=== PATIENT | female | born 1955 | race Caucasian/White ===

== ENCOUNTER 2016-02-28 17:31 | Inpatient (IN) | payer OTHER ==
[~2016-02-28] VITALS: Ht 167.6 cm; Wt 40.4 kg
[~2016-02-28 17:31] MED LIST: ADVIL200 M2 PO; ALDACTONE25 MG PO; ALDACTONE50 M1 PO; AMITRIPTYLINE H25 M2; AMITRIPTYLINE H25 M2 PO; AMOX-CLAV 875-1 EACH PO; ANUSOL-HC30 GM TOP; CALTRATE 600 +1 EACH PO; FERROUS SULFAT325 M3 PO; FOLIC ACID1 M1 PO; FUROSEMIDE20 M1 PO; LACTULOSE20 GM/30 M PO; LIDODERM1 EACH EXT; MAGNESIUM OXID400 M1 PO; MIRALAX17 G1 PO; OMEPRAZOLE20 M2 PO; ONE DAILY MULT1 EAC2 PO; SENNA S TABLET1 EACH PO; SPIRONOLACTONE50 M1 PO; VITAMIN B-1100 MG PO; VITAMIN E400 UNI1 PO
--- NOTE | 2016-02-28 18:06 | ED AMS/SEIZURE/WEAK/DIZZY ---
History of Present Illness General Chief Complaint: Altered Mental Status Stated Complaint: LIVER FAILURE ALTERED MENTAL STATUS Source: family, old records Exam Limitations: no limitations Vital Signs & Intake/Output Vital Signs & Intake/Output Vital Signs Date Time Temp Pulse Resp B/P Pulse O2 O2 Flow FiO2 Ox Delivery Rate 02/28 0020 97.3 114 18 100/62 95 Nasal Cannula 02/27 2202 Nasal 2.0L Cannula 02/27 2123 98.4 114 20 110/50 99 Room Air 02/28 2052 98.3 117 20 119/82 99 Room Air 02/27 174 97.4 123 16 131/84 86 Room Air ED Intake and Output 02/28 0000 02/27 1200 Intake Total 200 Output Total 150 Balance 50 Intake, IV 200 Output, Urine 150 Patient 89 lb 15.99 oz Weight Allergies Coded Allergies: NO KNOWN ALLERGIES (02/04/16) Reconcile Medications Calcium Carbonate/Vitamin D3 (Caltrate 600 + D Tablet) 600 MG-800 TABLET 1 TAB PO BID SUPPLEMENT (Reported) Ferrous Sulfate 325 MG (65 MG IRON) TABLET 1 TAB PO DAILY anemia Folic Acid 1 MG TABLET 1 TAB PO DAILY SUPPLEMENT (Reported) Furosemide 20 MG TABLET 1 TAB PO DAILY Water pill Lactulose 20 GRAM/30 ML SOLUTION 20 GM PO BID cirrhosis Lidocaine (Lidoderm) 5 % ADH..PATCH 1 PAT EXT DAILY@2200 rib pain Magnesium Oxide 400 MG TABLET 400 MG PO BID low magnesium Omeprazole 20 MG CAPSULE.DR 1 CAP PO DAILY GI (Reported) Spironolactone (Aldactone) 25 MG TABLET 100 MG PO DAILY Cirrhosis Thiamine HCl (Vitamin B-1) 100 MG TABLET 1 TAB PO DAILY SUPPLEMENT (Reported) Vitamin E (Dl,Tocopheryl Acet) (Vitamin E) 400 UNIT CAPSULE 1 CAP PO BID SUPPLEMENT (Reported) Triage Note: PT HAS LIVER FAILURE WITH INCREASED CONFUSION. SPOUSE STATES SHE BECAME INCREASINGLY CONFUSED LAST EVENING. PT AMONIA LEVELS WERE HIGH WHEN SHE WAS TESTED FOR IT ON THE 3RD OF THIS MONTH. Triage Nurses Notes Reviewed? yes Onset: Abrupt Duration: day(s): (1) Timing: single episode today Injury Environment: home Severity: severe No Modifying Factors: none Associated Symptoms: CONFUSION, WEIGHT LOSS 20 LB IN 2 WEEKS HPI: This is a 60-year-old female who presents to the ER with from for chief complaint of altered mental status per her . This morning she told him she would prepare some breakfast but never did. He left for work for a few hours and found her very altered when he came home, not responding properly. History of cirrhosis on the livery transplant list. She is sober x 3.5 months and follows up with Dr. Raymundo. He reports she is compliant with all of her medications. No fever or chills. (GENOVEVA STRATTON MD) Past History Travel History Traveled to [place] past 21 day No Medical History Neurological: peripheral neuropathy EENT: reports changes in the vision of her right eye Cardiovascular: TACHYCARDIA Respiratory: NONE Gastrointestinal: alcoholic hepatitis, hemorrhoids cirrhosis Hepatic: cirrhosis, FATTY LIVER Renal: nephrolithiasis, she was found to have right-sided hydronephrosis for which she was seen by Dr. Sutherland in the hospital although she tells me she was unable to be seen because of frequent hospital stays since her discharge in November. 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/Reproductive: NONE Other Medical Hx: head trauma resulting in parieto-occipital scalp hematoma left leg lymphedema She had a pneumothorax after a fall many years ago History of MRSA: No History of VRE: No History of CDIFF: No Influenza Vaccine: 10/18/14 Surgical History Surgical History: hysterectomy, basal cell carcinoma left oophrectomy cervical cancer in the early Psychosocial History Who do you live with Spouse Services at Home Physical Therapy What is your primary language Cook Islander Tobacco Use: Never used ETOH Use: denies use Illicit Drug Use: denies illicit drug use Family History Family History, If Any: FATHER, , Age 40-50; Cause: Colon cancer. FH: colon cancer SISTER, ; Cause: Pancreatic cancer. FH: pancreatic cancer MOTHER FH: Alzheimers disease Relation not specified for: *No pertinent family history colon cancer (GENOVEVA STRATTON MD) Medical History Any Pertinent Medical History? see below for history Family History Hx Contributory? No (PARRISH ADAMS,LYDIA Yi) Review of Systems Review of Systems Constitutional: Reports: malaise, weakness, unexplained weight loss. Denies: chills, fever. EENTM: Reports: no symptoms. Respiratory: Denies: cough. Cardiovascular: Denies: chest pain. GI: Denies: abdominal pain. Genitourinary: Reports: no symptoms. Musculoskeletal: Reports: no symptoms. Skin: Reports: no symptoms. Neurological/Psychological: Reports: ataxia, confusion. Hematologic/Endocrine: Denies: bruising, bleeding. Immunologic/Allergic: Reports: no symptoms. All Other Systems: Reviewed and Negative (GENOVEVA STRATTON MD) Review of Systems Constitutional: Reports: see HPI. (PARRISH ADAMS,LYDIA Yi) Physical Exam Physical Exam General Appearance: awake, cachetic, severe distress, thin Head: atraumatic Eyes: Bilateral: pale conjunctivae, other (icteric sclera). Ears, Nose, Throat: DRY MUCUS MEMBRANES Neck: normal inspection, supple, full range of motion Respiratory: normal breath sounds, chest non-tender, no respiratory distress Cardiovascular: regular rate/rhythm Peripheral Pulses: 2+ radial (R), 2+ radial (L) Gastrointestinal: FIRM, DISTENDED Extremities: FULL RANGE OF MOTION Neurologic/Psych: LETHARGIC, AROUSABLE Core Measures ACS in differential dx? No CVA/TIA Diagnosis: No Severe Sepsis Present: No Septic Shock Present: No (GENOVEVA STRATTON MD) ED Sepsis Exam Date of Focused Sepsis Exam: 02/28/16 Time of Focused Sepsis Exam: 1800 Sepsis Cardiac Exam: Regular Rate/Rhythm Sepsis Resp Exam: CTA Sepsis Cap Refill Exam: >2 sec Sepsis Peripheral Pulse Exam: Weak Sepsis Peripheral Pulse Location: Radial Sepsis Skin Color Exam: Cyanotic, Pale Skin Temp/Moisture Exam: Warm/Dry (GENOVEVA STRATTON MD) Progress Plan of Care: Orders Procedure Date/time Status Nothing by Mouth 02/28 B Active MAGNESIUM 02/28 0600 Active CBC WITHOUT DIFFERENTIAL 02/28 06 Active BASIC ELECTROLYTES PLUS BUN&CR 02/28 06 Active Hemoccult 02/28 UNK Active Vital Signs 02/27 2201 Active Teach/Educate 02/27 2201 Active Nutritional Intake, Monitor 02/27 2201 Active Isolation 02/27 2201 Active Intake & Output 02/27 2201 Active Patient Care Conference 02/27 2201 Active Activity/Ambulation 02/27 2201 Active Saline Lock 02/28 2104 Active Pathway - chart 02/28 2104 Active House Staff 02/28 2104 Active Code Status 02/28 2104 Active CULTURE,BODY FLUID 02/27 2045 Active BODY FLUID CELL COUNT 02/27 2045 Complete Lab Add-on Test 02/27 2021 Active Saline Lock 02/27 2019 Active Misc Message 02/27 2019 Active ED Holding Orders 02/27 2019 Active Vital Signs 02/27 2019 Active Activity/Ambulation 02/27 2019 Active Code Status 02/27 2019 Complete Patient Data 02/27 2002 Active Admit to inpatient 02/27 195 Active PHOSPHORUS 02/27 1837 Complete MAGNESIUM 02/27 1837 Complete DIRECT BILIRUBIN 02/27 1837 Complete AMMONIA LEVEL 02/27 1837 Complete ARTERIAL BLOOD GAS (GEN) 02/27 1804 Complete Gómez, Insertion/Removal/Asses 02/27 1804 Active CULTURE,URINE 02/27 1804 Active BLOOD CULTURE 02/27 1804 Active URINE DRUGS OF ABUSE 02/27 1804 Complete URINALYSIS 02/27 1804 Complete TROPONIN LEVEL 02/27 1804 Complete PARTIAL THROMBOPLASTIN TIME 02/27 1804 Complete PROTHROMBIN TIME 02/27 1804 Complete LIPASE 02/27 1804 Complete ETHANOL 02/27 1804 Complete COMPREHENSIVE METABOLIC PANEL 02/27 1804 Complete CBC WITHOUT DIFFERENTIAL 02/27 1804 Complete TYPE & SCREEN (NOT X-MATCH) 02/27 1804 Complete EKG 02/27 1752 Active SWALLOW EVALUATION 02/27 UNK Active VTE Mechanical Prophylaxis 02/27 UNK Active Vital Signs 02/27 UNK Complete Restraint- Medical 02/27 UNK Complete Restraint- Medical 02/27 UNK Active Precautions 02/27 UNK Active Intake & Output 02/27 UNK Active Current Medications Sig/Micaela Start time Last Medication Dose Stop Time Status Admin Ceftriaxone Sodium 1,000 MG 2200 02/28 2200 AC (Rocephin) Folic Acid 1 MG DAILY 02/28 1000 AC (Folic Acid) Furosemide 20 MG DAILY 02/28 1000 AC (Lasix) Spironolactone 100 MG DAILY 02/28 1000 AC (Aldactone) Lactulose 1 BOT Q4 02/28 0200 AC (Lactulose Enema (Pom Only)) Thiamine HCl 100 MG ONCE ONE 02/28 0100 UNVr (Vitamin B-1) 02/28 0159 Sodium Chloride 100 ML (Normal Saline 0.9%) Potassium Chloride 10 MEQ Q1H 02/28 0045 AC 02/28 0146 Haloperidol 2.5 MG ONCE ONE 02/27 2300 CAN (Haldol) 02/27 2301 Magnesium Sulfate 1 GM ONCE ONE 02/27 2215 AC (Mag Sulfate in D5) 02/28 0214 Dextrose/Water 100 ML (D5W) Acetaminophen 325 MG Q8P PRN 02/27 2099 AC (Tylenol) Lactulose 20 GM ONCE ONE 02/28 1944 CAN (Enulose 20GM/30ML) 02/27 1945 Laboratory Tests 02/28/16 2100: Lymphocytes 47, % Normal PMNs 27, Misc Hematology Test , Fluid WBC 500 H, Fld Total RBCs Counted 353 H 02/28/16 1851: Urine Opiates Screen < 100.00, Methadone Screen < 40, Barbiturate Screen < 60, Ur Phencyclidine Scrn < 6.00, Amphetamines Screen < 100, U Benzodiazepines Scrn < 85, Urine Cocaine Screen < 50, Urine Cannabis Screen < 5.00, Urinalysis LIGHT H, Urine Color YEL, Urine Clarity HAZY H, Urine pH 6.5, Ur Specific [place] 1.025, Urine Protein 100 H, Urine Ketones TRACE H, Urine Nitrite POS H, Urine Bilirubin NEG@ICTO, Urine Urobilinogen 1.0, Ur Leukocyte Esterase LARGE H, Ur Microscopic SEDIMENT EXAMINED, Urine RBC 10-15 H, Urine WBC 25-50 H, Urine Hemoglobin LARGE H, Urine Glucose NEG 02/28/16 1837: Ammonia 78 H 02/28/16 183: Anion Gap 19 H, Estimated GFR > 60, BUN/Creatinine Ratio 15.0, Glucose 120 H, Calcium 9.7, Phosphorus 3.4, Magnesium 1.7, Total Bilirubin 6.9 H, Direct Bilirubin 3.1 H, AST 46 H, ALT 27, Alkaline Phosphatase 217 H, Troponin I < 0.01, Total Protein 8.1, Albumin 3.5, Globulin 4.6 H, Albumin/Globulin Ratio 0.8 L, Lipase 16 L, PT 22.7 H, INR 2.18 H, APTT 50 H, CBC w Diff NO MAN DIFF REQ, RBC 3.26 L, MCV 98.8, MCH 33.3 H, RDW 21.8 H, MPV 7.8, Gran % 63.7, Lymphocytes % 19.5 L, Monocytes % 14.1 H, Eosinophils % 2.1, Basophils % 0.6, Absolute Granulocytes 5.7, Absolute Lymphocytes 1.7, Absolute Monocytes 1.3 H, Absolute Eosinophils 0.2, Absolute Basophils 0.1, PUBS MCHC 33.7, Serum Alcohol < 10.0 02/28/161804: pH 7.54 H, pCO2 24 L, pO2 99, HCO3 20 L, ABG O2 Sat (Measured) 97.0, P-50 ( Temp Corrected) Y, Carboxyhemoglobin 0.3 L, O2 Concentration % 3L, Temperature 97.4, O2 Delivery Method N/C, Phlebotomy Draw Site RIGHT RADIAL Microbiology 02/27 2103 BLOOD: Blood Culture - RECD 02/27 2099 BODY FLUID: Body Fluid Culture - RECD 02/27 2099 BODY FLUID: Gram Stain - RECD 02/27 1850 URINE ROUT: Urine Culture - RECD 02/27 183 BLOOD: Blood Culture - RECD Hand-Off Endorsed To: PARRISH ADAMS,LYDIA Yi Endorsed Time: 1899 Pending: labs, Xray (CHAYITO ADAMS,GENOVEVA) Differential Diagnosis: alcohol intoxication, anemia, drug intoxication, encephalitis, electrolyte imbalance, HEPATIC ENCEPHALOPATHY Diagnostic Imaging: Viewed by Me: Radiology Read, Ultrasound. Discussed w/RAD: Radiology Read, Ultrasound. Radiology Impression: PATIENT: TOMEKA WILLIS PRESENT AGE : 60 PATIENT ACCOUNT NO: [id number] : 57 LOCATION: [facility] ORDERING PHYSICIAN: LYDIA SENIOR MD SERVICE DATE: 02/28/16 EXAM TYPE: US - US-DUPLEX VENOUS EXTREM UNI EXAMINATION: US LOWER EXTREMITY VENOUS, LEFT CLINICAL INFORMATION: Left lower extremity edema. COMPARISON: None. TECHNIQUE: Doppler spectral analysis and color flow Doppler imaging was performed of the left lower extremity. Compression and augmentation maneuvers were performed. FINDINGS: Lower extremity venous ultrasound demonstrates no evidence of DVT. The common femoral, femoral, popliteal and calf veins were well-identified and normal. They demonstrate normal compressibility and color fill-in. No popliteal cyst. IMPRESSION: No evidence for a lower extremity deep vein thrombosis. DICTATED BY: FRED VILLAVICENCIO MD DATE/TIME DICTATED:02/28/162040 CREDIT ADMINISTRATION OFFICER :DEJAH DATE/TIME TRANSCRIBED:02/28/162040 CONFIDENTIAL, DO NOT COPY WITHOUT APPROPRIATE AUTHORIZATION. <Electronically signed in Other Vendor System> SIGNED BY: FRED VILLAVICENCIO MD 02/28/162045 CXR Impression: SEE BELOW Initial ED EKG: S TACH AT 119 AND NSSTT CHANGES. Prior EKG: unchanged Rhythm Strip: sinus tachycardia Comments: PATIENT: TOMEKA WILLIS PRESENT AGE: 60 PATIENT ACCOUNT NO: [id number] : 57 LOCATION: [facility] ORDERING PHYSICIAN: GENOVEVA STRATTON MD SERVICE DATE: 02/28/16 EXAM TYPE: RAD - XRY-PORTABLE CHEST XRAY EXAMINATION: XR PORTABLE CHEST CLINICAL INFORMATION: 60-year-old female with acute mental status change. Cirrhosis. Ascites. Hypoxic. COMPARISON: Chest x-ray on 02/04/2016. TECHNIQUE: AP portable semierect view of the chest. FINDINGS: Lung volumes are low due to the high position of both hemidiaphragms secondary to the large volume ascites. Consequently, there is platelike atelectasis involving both lower lobes. As was the case in January, it is difficult to exclude bilateral pleural effusions. IMPRESSION: Ascites resulting in the high position of both hemidiaphragms and platelike atelectasis of the lower lobes. DICTATED BY: YODIT HAYWARD MD DATE/TIME DICTATED:02/28/161917 CREDIT ADMINISTRATION OFFICER:DEJAH DATE/TIME TRANSCRIBED:02/28/161917 CONFIDENTIAL, DO NOT COPY WITHOUT APPROPRIATE AUTHORIZATION. <Electronically signed in Other Vendor System> SIGNED BY: YODIT HAYWARD MD 1925 (LYDIA SENIOR MD) Departure Departure Clinical Impression Primary Impression: Encephalopathy, hepatic Secondary Impressions: Hypokalemia Referrals: GIANNI PERSAUD MD (PCP/Family) Departure Forms: Customer Survey General Discharge Information (GENOVEVA STRATTON MD) Departure Disposition: STILL A PATIENT Condition: Guarded Admission Note Spoke With: KENNY DOE MD Documentation of Exam: Documentation of any treatments & extenuating circumstances including Concerns Regarding Discharge (functional status, medication knowledge or non-compliance, living conditions, etc.) that warrant an admission rather than observation: [ Patient to be admitted for hepatic encephalopathy and possible SBP. Patient will have a diagnostic paracentesis. Patient will receive lactulose. Patient is on the transplant list and will needed GI consultation.] (LYDIA SENIOR MD) Procedures Additional Procedures Additional Procedures: DIAGNOSTIC PARACENTESIS Progress: Under ultrasound guidance the area was cleaned and prepped in the usual fashion. 1% lidocaine a total of 2 mL was used for anesthetizing of the skin. As Z track puncture was performed. 20 mL of thin yellow fluid was obtained. This will be sent to lab. Patient tolerated procedure well. (PARRISH ADAMS,LYDIA Yi) Critical Care Note Critical Care Note Critical Care Time: mins: (30 MIN) (PARRISH ADAMS,LYDIA Yi)
[2016-02-28 18:58] LABS: ABSOLUTE BASOPHIL COUNT 0.1 /CUMM (0.0-0.2); ABSOLUTE EOSINOPHIL COUNT 0.2 /CUMM (0.0-0.7); ABSOLUTE GRANULOCYTE CT 5.7 /CUMM (1.4-6.5); ABSOLUTE LYMPH COUNT 1.7 /CUMM (1.2-3.4); ABSOLUTE MONOCYTE COUNT 1.3 /CUMM (0.10-0.60); BASOPHIL % 0.6 % (0.0-2.0); EOSINOPHIL % 2.1 % (0-5); GRANULOCYTE % 63.7 % (42.2-75.2); HEMATOCRIT 32.2 % (37-47); MEAN CORPUSCULAR HGB 33.3 PG (27.0-31.0); MEAN CORPUSCULAR HGB CONC 33.7 G/DL (33.0-37.0); MEAN CORPUSCULAR VOLUME 98.8 FL (81.0-99.0); MEAN PLATELET VOLUME 7.8 FL (7.4-10.4); PLATELET COUNT 218 /CUMM (130-400); RBC DISTRIBUTION WIDTH 21.8 % (11.5-14.5); RED BLOOD CELL CT 3.26 /CUMM (4.20-5.40); WHITE BLOOD CELL COUNT 8.9 /CUMM (4.8-10.8)
--- NOTE | 2016-02-28 19:26 | RADIOLOGY REPORT ---
EXAMINATION: XR PORTABLE CHEST CLINICAL INFORMATION: 60-year-old female with acute mental status change. Cirrhosis. Ascites. Hypoxic. COMPARISON: Chest x-ray on 02/04/2016. TECHNIQUE: AP portable semierect view of the chest. FINDINGS: Lung volumes are low due to the high position of both hemidiaphragms secondary to the large volume ascites. Consequently, there is platelike atelectasis involving both lower lobes. As was the case in January, it is difficult to exclude bilateral pleural effusions. IMPRESSION: Ascites resulting in the high position of both hemidiaphragms and platelike atelectasis of the lower lobes.
--- NOTE | 2016-02-28 20:21 | History & Physical ---
CHANDANA BENSON MD 02/28/162020: General Information and HPI MD Statement: I have seen and personally examined TOMEKA WILLIS and documented this H&P. The patient is a 60 year old F who presented with a patient stated chief complaint of [increased confusion]. Source of Information: patient, family Exam Limitations: unable to give history, not alert/orientated, clinical condition History of Present Illness: 60-year-old female with PMH of cirrhosis diagnosed in Nov 2015, alcohol dependence, last use November 2015, anemia, tachycardia, chronic left lower extremity lymphedema, cervical cancer sp hysterectomy in 1990, urinary retention with chronic indwelling layton catheter, recurrent falls with right ribs fracture 4 weeks RELINER, presented with increased confusion. Her started noticing it last night, when she appeared confused when asked to sign a piece of paper and unable to use the TV remote. This morning, she still appeared confused and said she was going to make herself omelette, but she did not. When her got home from work, she was not responsive to his questions, and he decided to bring her to the ED. She had 20lbs weight loss since last admission because she has not had good appetite. She has abdominal discomfort. Her urine has been dark and blood tinged since it was inserted. Her abdomen is getting more distended due to ascites, but as per , it is still not as distended as previous admission. She had 1 episode of vomiting 4 days ago, unknown if there was blood, as she flushed the toilet before her saw it. She has chronic left leg swelling. On ROS, she has not had fever, chills, shortness of breath (much improved since last admission), chest pain (other than the right sided rib pain from the recent fall), nausea, vomiting, constipation, diarrhea, discomfort with layton. She was having some difficulty swallowing her pills this morning, as per , there was periods of "choking". Allergies/Medications Allergies: Coded Allergies: NO KNOWN ALLERGIES (02/04/16) Home Med list Calcium Carbonate/Vitamin D3 (Caltrate 600 + D Tablet) 600 MG-800 TABLET 1 TAB PO BID SUPPLEMENT (Reported) Ferrous Sulfate 325 MG (65 MG IRON) TABLET 1 TAB PO DAILY anemia Folic Acid 1 MG TABLET 1 TAB PO DAILY SUPPLEMENT (Reported) Furosemide 20 MG TABLET 1 TAB PO DAILY Water pill Lactulose 20 GRAM/30 ML SOLUTION 20 GM PO BID cirrhosis Lidocaine (Lidoderm) 5 % ADH..PATCH 1 PAT EXT DAILY@2200 rib pain Magnesium Oxide 400 MG TABLET 400 MG PO BID low magnesium Omeprazole 20 MG CAPSULE.DR 1 CAP PO DAILY GI (Reported) Spironolactone (Aldactone) 25 MG TABLET 100 MG PO DAILY Cirrhosis Thiamine HCl (Vitamin B-1) 100 MG TABLET 1 TAB PO DAILY SUPPLEMENT (Reported) Vitamin E (Dl,Tocopheryl Acet) (Vitamin E) 400 UNIT CAPSULE 1 CAP PO BID SUPPLEMENT (Reported) Past History Travel History Traveled to [place] past 21 day No Medical History Neurological: peripheral neuropathy EENT: reports changes in the vision of her right eye Cardiovascular: TACHYCARDIA Respiratory: NONE Gastrointestinal: alcoholic hepatitis, hemorrhoids cirrhosis Hepatic: cirrhosis, FATTY LIVER Renal: nephrolithiasis, right-sided hydronephrosis , chronic indwelling catheter 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, 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 FH: colon cancer SISTER, ; Cause: Pancreatic cancer. FH: pancreatic cancer MOTHER FH: Alzheimers disease Relation not specified for: colon cancer Psychosocial History Where do you live? Home Who Do You Live With? spouse Services at Home: Physical Therapy Primary Language: Venezuelan Smoking Status: Former Smoker ETOH Use: denies use Illicit Drug Use: denies illicit drug use Living Will? yes Functional Ability ADLs Independent: dressing, eating, toileting, bathing. Ambulation: independent IADLs Independent: shopping, housework, finances, food prep, telephone, transportation , medication admin. Review of Systems Review of Systems Constitutional: Reports: unexplained weight loss (20lbs since last admission). Denies: chills, fever. EENTM: Reports: icterus. Cardiovascular: Denies: chest pain. Respiratory: Reports: cough, short of breath. GI: Denies: abdominal pain, constipation, diarrhea, bloody stool, changes in stool. Genitourinary: Reports: hematuria. Denies: dysuria. Musculoskeletal: Reports: see HPI. Denies: back pain. Skin: Reports: rash. Exam & Diagnostic Data Last 24 Hrs of Vital Signs/I&O Vital Signs Date Time Temp Pulse Resp B/P Pulse O2 O2 Flow FiO2 Ox Delivery Rate 02/27 2123 98.4 114 20 110/50 99 Room Air 02/28 2052 98.3 117 20 119/82 99 Room Air 02/27 1741 97.4 123 16 131/84 86 Room Air Physical Exam General Appearance Alert, Mild Distress, not oriented to time, place, or person, lethargic, not able to follow commands Skin blanching pinpoint rash on her back , no decubitus ulcer , spider angioma on the chest HEENT PERRLA, dry mucous membranes , scleral icterus Neck +2 Carotid Pulse wo Bruit Lymphatic Axillary nl, Cervical nl Cardiovascular Regular Rate, Normal S1, Normal S2, No Murmurs, Gallops, Rubs, tachycardic Lungs decreased breath sounds Abdomen Soft, tender abdomen , abdominal distention due to ascites Neurological positive asterixis Extremities Normal Pulses, pitting edema left lower extremities up to the knee , normal cap refill Last 24 Hrs of Labs/Shaggy: Laboratory Tests 02/28/16 2100: Lymphocytes 47, % Normal PMNs 27, Misc Hematology Test , Fluid WBC 500 H, Fld Total RBCs Counted 353 H 02/28/16 1851: Urine Opiates Screen < 100.00, Methadone Screen < 40, Barbiturate Screen < 60, Ur Phencyclidine Scrn < 6.00, Amphetamines Screen < 100, U Benzodiazepines Scrn < 85, Urine Cocaine Screen < 50, Urine Cannabis Screen < 5.00, Urinalysis LIGHT H, Urine Color YEL, Urine Clarity HAZY H, Urine pH 6.5, Ur Specific Stanton 1.025, Urine Protein 100 H, Urine Ketones TRACE H, Urine Nitrite POS H, Urine Bilirubin NEG@ICTO, Urine Urobilinogen 1.0, Ur Leukocyte Esterase LARGE H, Ur Microscopic SEDIMENT EXAMINED, Urine RBC 10-15 H, Urine WBC 25-50 H, Urine Hemoglobin LARGE H, Urine Glucose NEG 02/28/16 1837: Ammonia 78 H 02/28/161836: Anion Gap 19 H, Estimated GFR > 60, BUN/Creatinine Ratio 15.0, Glucose 120 H, Calcium 9.7, Phosphorus 3.4, Magnesium 1.7, Total Bilirubin 6.9 H, Direct Bilirubin 3.1 H, AST 46 H, ALT 27, Alkaline Phosphatase 217 H, Troponin I < 0.01, Total Protein 8.1, Albumin 3.5, Globulin 4.6 H, Albumin/Globulin Ratio 0.8 L, Lipase 16 L, PT 22.7 H, INR 2.18 H, APTT 50 H, CBC w Diff NO MAN DIFF REQ, RBC 3.26 L, MCV 98.8, MCH 33.3 H, RDW 21.8 H, MPV 7.8, Gran % 63.7, Lymphocytes % 19.5 L, Monocytes % 14.1 H, Eosinophils % 2.1, Basophils % 0.6, Absolute Granulocytes 5.7, Absolute Lymphocytes 1.7, Absolute Monocytes 1.3 H, Absolute Eosinophils 0.2, Absolute Basophils 0.1, PUBS MCHC 33.7, Serum Alcohol < 10.0 02/28/16 1805: pH 7.54 H, pCO2 24 L, pO2 99, HCO3 20 L, ABG O2 Sat (Measured) 97.0, P-50 ( Temp Corrected) Y, Carboxyhemoglobin 0.3 L, O2 Concentration % 3L, Temperature 97.4, O2 Delivery Method N/C, Phlebotomy Draw Site RIGHT RADIAL Microbiology 02/27 2103 BLOOD: Blood Culture - RECD 02/27 2099 BODY FLUID: Body Fluid Culture - RECD 02/27 2100 BODY FLUID: Gram Stain - RECD 02/27 1851 URINE ROUT: Urine Culture - RECD 02/27 1837 BLOOD: Blood Culture - RECD Diagnostic Data EKG Results ST, rate 119, normal QTc CXR Results IMPRESSION: Ascites resulting in the high position of both hemidiaphragms and platelike atelectasis of the lower lobes. Other Results Left doppler : No evidence for a lower extremity deep vein thrombosis. Assessment/Plan Assessment: 60-year-old female with PMH of cirrhosis diagnosed in Nov 2015, alcohol dependence, last use November 2015, anemia, tachycardia, chronic left lower extremity lymphedema, cervical cancer sp hysterectomy in 1990, urinary retention with chronic indwelling layton catheter, recurrent falls with right ribs fracture 4 weeks RELINER, presented with increased confusion. She is admitted to for the following problems: # Confusion most likely secondary to hepatic encephalopathy (ammonia elevated at 78, positive asterixis, unknown compliance to lactulose at home), which could possibly be precipitated by SBP (diagnostic paracentesis done at bedside yielded clear yellow fluid with WBC 500, 27% neutrophils, tender abdomen although soft and no guarding) vs UTI (has chronic indwelling catheter due to urinary retention, with blood tinged urine, UA positive for nitrite, leukocyte esterase, 25-50wbc, hx of ecoli in urine and blood on previous admission) - Anion gap metabolic acidosis - Respiratory alkalosis most likely secondary to ascites - MELD score: 22. 19.6% 3 month mortality * Follow 2X BC, UC * Lactulose enema * Consider Rifaximin * Continue ceftriaxone * IVF D51/2 NS at 50ml/hr * GI consult in AM. Pt's would like to be at bedside when GI sees her. * F/U with [facility] * Stool guaiac: positive guaiac, dark green stool * Swallow evaluation when pt more alert and oriented * Continue sprinolactone 100 mg daily and lasix 20 daily * Consider repeat CXR to evaluate for possible aspiration # Hypokalemia - K: 3 * [id number] IV * Give kdur when pt passes bedside eval # Hypomagnesemia - Mg 1.7 * Continue mag ox 400 bid * 1 X 1g mag # Right rib pain * Continue lidocaine patch Restrain: [place] for unsafe ambulation , BL wrist restrains for attempts at pulling out IV lines and layton Diet: NPO pending swallow evaluation. Otherwise low sodium diet DVT ppx: alps DNR/DNI As Ranked By This Provider Problem List: 1. Encephalopathy, hepatic 2. Spontaneous bacterial peritonitis Core Measures/Miscellaneous Acute Coronary Syndrome ACS Diagnosis: No Cerebrovascular Accident CVA/TIA Diagnosis: No Congestive Heart Failure CHF Diagnosis: No Venous Thromboembolism VTE Risk Factors: Acute medical illness, Age > 40 VTE Prophylaxis Ordered Inpt: Mechanical (ALPS/TEDS) No Mech VTE prophylaxis d/t: No contraindications No VTE Pharm Prophylaxis d/t: No contraindications VTE Diagnosis: No VTE Type: NONE VTE Confirmed by (Test): UNILATERAL VENOUS DOPPLER Severe Sepsis Severe Sepsis Present: No BC x2: Yes Lactic Acid x2: Yes IV ABX Broad Spectrum: Yes Septic Shock Septic Shock Present: No Miscellaneous Documentation Attending Case Discussed With: KENNY DOE MD Primary Care Physician: CORI ADAMS,GIANNI Patient sees these Specialists Dr Zackary HARTLEY Level of Patient Care: General Medicine MARCELLO MERCEDES 02/29/16 0024: Resident Review Statement Resident Statement: examined this patient, discussed with applications intern, agreed with applications intern, discussed with family, reviewed EMR data (avail), reviewed images, amended to note Other Findings: This is 60-year-old female with past medical history of diagnosed in Nov 2015 with alcohol induced cirrhosis, last use November 2015, anemia, chronic left lower extremity lymphedema, cervical cancer sp hysterectomy in 1990, urinary retention with chronic indwelling layton catheter due to obstructive uropathy, recurrent falls with right ribs fracture 4 weeks RELINER, presented with increased confusion, decreased appetite, 20 pound weight loss since recent discharge on January, abdominal pain with increased abdominal girth. Her urine has been dark and blood tinged since it was inserted. He deny any fever, chills, difficulty breathing. The history was taken from the patient , and she is disoriented, cannot follow command. Positive guaiac stool. MELD score: 22. 19.6% 3 month mortality Physical Examination, lab and imaging as above. Problem list: -Hepatic encephalopathy that could be due to medication noncompliance, underlying infection, bleeding. SBP rule out by diagnostic tap. -Hypokalemia, hypomagnesemia -Anion gap acidosis, respiratory alkalosis -Dark urine with abnormal urine analysis -Dehydration, cachectic Plan: -Admit patient to general medicine floor -[facility] every shift, I&Os. -Per rectum on lactulose every 4 hours -Continue IV ceftriaxone, IV vitamin B-1 -As needed haloperidol for agitation -Replete potassium and magnesium as needed -D5 half-normal saline at 50 per hour only one bag. -Blood culture, urine culture, body fluid culture -Continue home medication of by mouth Lasix, spironolactone, folic acid -Repeat CBC and basic panel electrolyte in the morning -Keep the patient nothing by mouth pending swallow evaluation -Gastroenterology consultation in a.m. -The patient may need upper endoscopy for varices evaluation. -Urology consultation in a.m. -Pain pathway low dose of Tylenol maximum of 2 g per day. -DVT prophylaxis: Alps -DNI DNR per her KENNY DOE 02/29/16 0333: Attending MD Review Statement Attending Statement Attending MD Statement: examined this patient, discuss w/resident/PA/LANDSCAPING CREW LEADER, agreed w/resident/PA/LANDSCAPING CREW LEADER, reviewed EMR data (avail), reviewed images, amended to note Attending Assessment/Plan: CC : Altered mental status PMHx: Alcoholic cirrhosis, decompensated with ascites. Recent obstructive uropathy with left hydronephrosis secondary to obstructing stone at [facility]. Chronic indwelling Layton secondary to urinary retention, HLD, chronic left lower extremity edema, history of cervical cancer, chronic tachycardia. Patient was recently admitted for sepsis of urological origin with obstructing left-sided stone status post stent placement, was discharged on February 14. states that patient has been more confused since yesterday, progressively worsened today and almost nonresponsive this evening when he brought her in the hospital. Patient does not provide any details as she is encephalopathy, but denies any fever, chills, chest pain, difficulty swallowing, LOC, urinary complaints. According to patient had been compliant with her medications. Patient had recent fall after which chest pain secondary to rib fractures, she has poor appetite and lost 20 pounds of weight ? Duration unknown patient quit drinking in November 2015. Vitals: Afebrile, pulse 114, RR, BP, O2 saturation within acceptable range. On examination: Patient has constant stare, does not follow instructions, spontaneously moves all extremities. PERRLA, mucosa dry, neck supple, no lymphadenopathy, left lower extremity is bigger and pitting edema as compared to right lower extremity, no evidence of spider angiomata, diffuse rash on the back and chest, RS: Clear to auscultate bilaterally. CVS: S1-S2, tachycardia. Abdomen : Distended, fluid thrill present, bowel sounds present, mild tenderness, no right upper quadrant tenderness. Labs: Hemoglobin 10.9, potassium 3.0, anion gap 19, bilirubin 6.9 which is increased from 5.1 from previous hospitalization, INR 2.1, AST 46, ALT 27, alkaline phosphatase 217, ammonia 78, albumin 3.5, troponin less than 0.01, lipase 16, UA positive for ketones as well as nitrates and leukocyte esterase, U tox negative. Chest x-ray: Ascites resulting in the high position of both hemidiaphragms and platelike atelectasis of the lower lobes. Left lower extremity DVT Doppler: No evidence of thrombus. A&P #1 hepatic encephalopathy: Patient is confused, with elevated ammonia. Unclear if patient can't swallow properly at this point given her mental status, also mentions that patient was having difficulty swallowing at home. Patient will need formal swallow evaluation in morning meanwhile continue lactulose retention enema Q every 6 hours, may change to by mouth once patient swallow evaluation is done. Continue neuro checks. Patient has decompensated cirrhosis with ascites and progression of disease may have precipitated hepatic encephalopathy but rule out other causes including systemic infection, GI bleed. #2 acetic fluid was tapped in ER, WBC count 500, PMN:135 ; Even though abdomen as tender to palpate, no evidence of SBP on test. #3 UTI with indwelling Layton catheter: No significant leukocytosis or fever but given worsened encephalopathy, get blood culture, urine culture, continue IV ceftriaxone. #4 decompensated cirrhosis: Current MELD score is 22. Currently complicated with encephalopathy, continue lactulose #5 DVT prophylaxis with heparin, avoid opiates for pain control given encephalopathy #6 no e/o pressure ulcer or skin breakdown on back, which was present in previous hospitalization. She had very dark colored stool, but no blood, Suggested to check guaiac.
--- NOTE | 2016-02-28 20:46 | ULTRASOUND REPORT ---
EXAMINATION: US LOWER EXTREMITY VENOUS, LEFT CLINICAL INFORMATION: Left lower extremity edema. COMPARISON: None. TECHNIQUE: Doppler spectral analysis and color flow Doppler imaging was performed of the left lower extremity. Compression and augmentation maneuvers were performed. FINDINGS: Lower extremity venous ultrasound demonstrates no evidence of DVT. The common femoral, femoral, popliteal and calf veins were well-identified and normal. They demonstrate normal compressibility and color fill-in. No popliteal cyst. IMPRESSION: No evidence for a lower extremity deep vein thrombosis.
[2016-02-28 21:32] LABS: PT 22.7 SEC (9.4-12.5); PTT 50 SEC (25-37)
[2016-02-29 00:20] VITALS: BP 100/62
--- NOTE | 2016-02-29 03:35 | Admission Certification ---
Admission Certification Certification Statement - As attending physician, I certify that at the time of - admission, based on clinical presentation, severity of - symptoms, need for further diagnostic testing and - therapeutic interventions, and risk of adverse outcomes - without in-hospital treatment, in my clinical assessment, - this patient requires an acute hospital stay for a minimum - of two nights or longer. I have also considered psychsocial - factors such as support system, advanced age, financial - issues, cognitive issues, and failed out-patient treatments, - past re-admission history, safety of patient, and lack of - compliance as applicable. Specific rationale supporting this admission is: Hepatic encephalopathy
--- NOTE | 2016-02-29 08:29 | Cons- Gastroenterology ---
General Information and HPI Consulting Request Date of Consult: 02/29/16 Requested By: KENNY DOE MD Reason for Consult: Hepatic encephalopathy, alcoholic cirrhosis, ascites. Source of Information: patient, family, old records Exam Limitations: confusion History of Present Illness: Ms. Mcintosh is a 60 year old female with etoh cirrhosis with numerous hospitalizations over the past several months and who was recently discharged for a hospitalization for urosepsis/SBP who represented to last night with reports of worsening confusion. She was noted by her to be confused last night and acting inppropriately. There have been no reports of abdominal pain, or fevers. She has had one episode of bilious vomiting a few days ago which has not persisted. She has had persistent abdominal distention and discomfort, but according to her the abdominal distention was worse on her last hospitalization. She has been having normal bowel movements without blood or melena. She has been on diuretics since being discharged and has also been on lactulose, but it isn't clear how complaint she has been with this. In the ER she was hemodynamically stable and afebrile she had a UA that was positive for a UTI and a diagnostic paracentesis was negative for SBP. She was admitted, started on IV ceftriaxone and lactuose, but continues to be confused. Of note, she was scheduled to see me as in the office as an outpatient on the day she was admitted. Allergies/Medications Allergies: Coded Allergies: NO KNOWN ALLERGIES (02/04/16) Home Med List: Calcium Carbonate/Vitamin D3 (Caltrate 600 + D Tablet) 600 MG-800 TABLET 1 TAB PO BID SUPPLEMENT (Reported) Ferrous Sulfate 325 MG (65 MG IRON) TABLET 1 TAB PO DAILY anemia Folic Acid 1 MG TABLET 1 TAB PO DAILY SUPPLEMENT (Reported) Furosemide 20 MG TABLET 1 TAB PO DAILY Water pill Lactulose 20 GRAM/30 ML SOLUTION 20 GM PO BID cirrhosis Lidocaine (Lidoderm) 5 % ADH..PATCH 1 PAT EXT DAILY@2200 rib pain Magnesium Oxide 400 MG TABLET 400 MG PO BID low magnesium Omeprazole 20 MG CAPSULE.DR 1 CAP PO DAILY GI (Reported) Spironolactone (Aldactone) 25 MG TABLET 100 MG PO DAILY Cirrhosis Thiamine HCl (Vitamin B-1) 100 MG TABLET 1 TAB PO DAILY SUPPLEMENT (Reported) Vitamin E (Dl,Tocopheryl Acet) (Vitamin E) 400 UNIT CAPSULE 1 CAP PO BID SUPPLEMENT (Reported) Current Medications: Current Medications Sig/Micaela Start time Last Medication Dose Route Stop Time Status Admin Acetaminophen 325 MG Q8P PRN 02/27 2100 AC PO Ceftriaxone Sodium 1,000 MG 0 02/28 2199 AC IV Ceftriaxone Sodium 1,000 MG ONCE ONE 02/27 2130 DC 02/28 IV 02/27 213 0102 Dextrose/Sodium 1,000 ML Q20H 02/27 2345 AC 02/28 Chloride IV 0014 Folic Acid 1 MG DAILY 02/28 1000 AC PO Furosemide 20 MG DAILY 02/28 1000 AC PO Haloperidol 2.5 MG ONCE ONE 02/27 2300 CAN IM 02/27 2301 Lactulose 1 BOT Q6 02/28 1200 AC FL Lactulose 1 BOT Q4 02/28 0200 DC 02/28 FL 0549 Lactulose 1 BOT ONCE ONE 02/27 2030 DC FL 02/27 2030 Lactulose 20 GM ONCE ONE 02/27 1945 CAN PO 02/27 1946 Lidocaine 1 PAT DAILY@0 02/28 220 AC EXT Lidocaine 0 .STK-MED ONE 02/28 2032 DC .ROUTE Lidocaine 20 ML ONCE ONE 02/27 2030 DC 02/27 ID 02/27 2030 204 Magnesium Sulfate 1 GM ONCE ONE 02/27 2215 DC 02/28 Dextrose/Water 100 ML IV 02/28 0214 0057 Potassium Chloride 10 MEQ Q1H 02/28 0045 DC 02/28 IV 02/28 0146 0321 Potassium Chloride 10 MEQ Q1H 02/27 2130 DC 02/28 IV 02/27 2231 0120 Sodium Chloride 1,000 ML .Q10H 02/27 2030 DC 02/27 IV 2222 Spironolactone 100 MG DAILY 02/28 1000 AC PO Thiamine HCl 100 MG ONCE ONE 02/28 0100 DC 02/28 Sodium Chloride 100 ML IV 02/28 0159 0200 Past History Travel History Traveled to [place] past 21 day No Medical History Neurological: peripheral neuropathy EENT: reports changes in the vision of her right eye Cardiovascular: TACHYCARDIA Respiratory: NONE Gastrointestinal: alcoholic hepatitis, hemorrhoids cirrhosis Hepatic: cirrhosis, FATTY LIVER Renal: nephrolithiasis, right-sided hydronephrosis chronic indwelling catheter 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, 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 FH: colon cancer SISTER, ; Cause: Pancreatic cancer. FH: pancreatic cancer MOTHER FH: Alzheimers disease Relation not specified for: colon cancer Psychosocial History Where Do You Live? Home Who Do You Live With? spouse Services at Home: Physical Therapy Primary Language: Romanian Smoking Status: Former Smoker ETOH Use: denies use Illicit Drug Use: denies illicit drug use Living Will? yes Functional Ability ADLs Independent: dressing, eating, toileting, bathing. Ambulation: independent IADLs Independent: shopping, housework, finances, food prep, telephone, transportation , medication admin. Review of Systems Review of Systems: A full 12 point review of systems was unobtainable secondary to the patient's confusion. Exam & Diagnostic Data Vital Signs and I&O Vital Signs Date Time Temp Pulse Resp B/P Pulse O2 O2 Flow FiO2 Ox Delivery Rate 02/28 0020 97.3 114 18 100/62 95 Nasal Cannula 02/27 2202 Nasal 2.0L Cannula 02/27 2123 98.4 114 20 110/50 99 Room Air 02/28 2052 98.3 117 20 119/82 99 Room Air 02/27 174 97.4 123 16 131/84 86 Room Air Intake & Output 02/28 1600 02/28 0400 02/27 1600 02/27 0400 02/26 1600 02/26 0400 Intake Total 800 200 Output Total 250 150 Balance 550 50 Intake, IV 800 200 Number 3 Bowel Movements Output, Urine 250 150 Patient 89 lb 15.99 oz Weight Physical Exam General Appearance: no apparent distress, comfortable, cachetic Head: atraumatic, + temporal wasting Eyes: Bilateral: other (+ scleral icterus). Ears, Nose, Throat: normal pharynx, normal ENT inspection Neck: normal inspection, supple, full range of motion Respiratory: normal breath sounds, chest non-tender, no respiratory distress Cardiovascular: regular rate/rhythm Gastrointestinal: normal bowel sounds, soft, distention, tenderness Rectal: deferred Back: normal inspection, normal range of motion Extremities: pedal edema, swelling, L >> R swelling Neurologic/Psych: disoriented x 3, Kernigs sign (+ asterixis), + asterixis Results Pertinent Lab Results: Laboratory Tests 02/28 02/27 02/27 0802 2100 1851 Chemistry Sodium Pending Potassium Pending Chloride Pending Carbon Dioxide Pending Anion Gap Pending BUN Pending Creatinine Pending BUN/Creatinine Ratio Pending Magnesium Pending Hematology CBC w Diff Pending WBC Pending RBC Pending Hgb Pending Hct Pending MCV Pending MCH Pending RDW Pending Plt Count Pending MPV Pending Lymphocytes (%) 47 % Normal PMNs (%) 27 PUBS MCHC Pending Misc Hematology Test (%) Other Body Source Fluid WBC (0 - 5 /CUMM) 500 H Fld Total RBCs Counted (0 /CUMM) 353 H Toxicology Urine Opiates Screen (>2000 NG/ML) < 100.00 Methadone Screen (>300 NG/ML) < 40 Barbiturate Screen (>200 NG/ML) < 60 Ur Phencyclidine Scrn (>25 NG/ML) < 6.00 Amphetamines Screen (>1000 NG/ML) < 100 U Benzodiazepines Scrn (>200 NG/ML) < 85 Urine Cocaine Screen (>300 NG/ML) < 50 Urine Cannabis Screen (>50 NG/ML) < 5.00 Urines Urinalysis LIGHT H Urine Color (YEL,AMB,STR) YEL Urine Clarity (CLEAR) HAZY H Urine pH (5.0 - 8.0) 6.5 Ur Specific [place] (1.001 - 1.035) 1.025 Urine Protein (NEG,<30 MG/DL) 100 H Urine Ketones (NEG) TRACE H Urine Nitrite (NEG) POS H Urine Bilirubin (NEG) NEG@ICTO Urine Urobilinogen (0.1 - 1.0 EU/dl) 1.0 Ur Leukocyte Esterase (NEG) LARGE H Ur Microscopic SEDIMENT EXAMINED Urine RBC (0 - 5 /HPF) 10-15 H Urine WBC (0 - 2 /HPF) 25-50 H Urine Hemoglobin (NEG) LARGE H Urine Glucose (N MG/DL) NEG 02/27 02/27 02/27 1837 1837 1805 Blood Gas pH (7.35 - 7.45 PH) 7.54 H pCO2 (35 - 45 TORR) 24 L pO2 (80 - 100 TORR) 99 HCO3 (21 - 28 MEQ/L) 20 L ABG O2 Sat (Measured) (>96.0 %) 97.0 P-50 (Temp Corrected) Y Carboxyhemoglobin (1.5 - 5.0 %) 0.3 L O2 Concentration % 3L Temperature (97.0 - 100.0 FARH) 97.4 O2 Delivery Method N/C Chemistry Sodium (137 - 145 mmol/L) 138 Potassium (3.5 - 5.1 mmol/L) 3.0 L Chloride (98 - 107 mmol/L) 96 L Carbon Dioxide (22 - 30 mmol/L) 23 Anion Gap (5 - 16) 19 H BUN (7 - 17 mg/dL) 9 Creatinine (0.5 - 1.0 mg/dL) 0.6 Estimated GFR (>60 ml/min) > 60 BUN/Creatinine Ratio (7 - 25 %) 15.0 Glucose (65 - 99 mg/dL) 120 H Calcium (8.4 - 10.2 mg/dL) 9.7 Phosphorus (2.5 - 4.5 mg/dL) 3.4 Magnesium (1.6 - 2.3 mg/dL) 1.7 Total Bilirubin (0.2 - 1.3 mg/dL) 6.9 H Direct Bilirubin (< 0.4 mg/dL) 3.1 H AST (14 - 36 U/L) 46 H ALT (9 - 52 U/L) 27 Alkaline Phosphatase (<127 U/L) 217 H Ammonia (9 - 30 umol/L) 78 H Troponin I (< 0.11 ng/ml) < 0.01 Total Protein (6.3 - 8.2 g/dL) 8.1 Albumin (3.5 - 5.0 g/dL) 3.5 Globulin (1.9 - 4.2 gm/dL) 4.6 H Albumin/Globulin Ratio (1.1 - 2.2 %) 0.8 L Lipase (23 - 300 U/L) 16 L Coagulation PT (9.4 - 12.5 SEC) 22.7 H INR (0.90 - 1.19) 2.18 H APTT (25 - 37 SEC) 50 H Hematology CBC w Diff NO MAN DIFF REQ WBC (4.8 - 10.8 /CUMM) 8.9 RBC (4.20 - 5.40 /CUMM) 3.26 L Hgb (12.0 - 16.0 G/DL) 10.9 L Hct (37 - 47 %) 32.2 L MCV (81.0 - 99.0 FL) 98.8 MCH (27.0 - 31.0 PG) 33.3 H RDW (11.5 - 14.5 %) 21.8 H Plt Count (130 - 400 /CUMM) 218 MPV (7.4 - 10.4 FL) 7.8 Gran % (42.2 - 75.2 %) 63.7 Lymphocytes % (20.5 - 51.1 %) 19.5 L Monocytes % (1.7 - 9.3 %) 14.1 H Eosinophils % (0 - 5 %) 2.1 Basophils % (0.0 - 2.0 %) 0.6 Absolute Granulocytes (1.4 - 6.5 /CUMM) 5.7 Absolute Lymphocytes (1.2 - 3.4 /CUMM) 1.7 Absolute Monocytes (0.10 - 0.60 /CUMM) 1.3 H Absolute Eosinophils (0.0 - 0.7 /CUMM) 0.2 Absolute Basophils (0.0 - 0.2 /CUMM) 0.1 PUBS MCHC (33.0 - 37.0 G/DL) 33.7 Miscellaneous Phlebotomy Draw Site RIGHT RADIAL Toxicology Serum Alcohol (<10 MG/DL) < 10.0 Assessment/Plan Assessment/Recommendations: Assessment: Ms. Mcintosh is a 60-year-old female with alcoholic cirrhosis with numerous hospitalizations over the past several months for various reasons including ascites, anemia, rectal bleeding, SBP and encephalopathy who presents now with changes in her mental status apparently secondary to hepatic encephalopathy and exacerbated by a urinary tract infection for which she has since been started on IV antibiotics. Her ascitic fluid did show 500 white cells, but only 27% of them were PMNs which does not meet the threshold for SBP. She is clearly encephalopathic and this has been exacerbated by an underlying UTI and electrolyte abnormalities, but primarily the UTI. She reportedly has been sober since November so if she continues to maintain sobriety she can be evaluated for a liver transplant considering her elevated meld score of approximately 22 on this admission, but will obviously hold off on that at this time considering the active infection and recent alcohol use. Recommendations: 1. Follow-up cultures and tailor antibiotics as indicated. 2. Continue IV ceftriaxone for now. 3. Continue lactulose and titrate to approximately 3 soft bowel movements a day. 4. Start Xifaxan 550 mg by mouth twice a day. 5. Advanced to a low sodium diet as tolerated and once her mental status improves. 6. Continue her current dose of diuretics and follow electrolytes and replete as needed. I will continue to follow this patient and make further recommendations based her clinical course and we'll tentatively plan to refer her for a liver transplant evaluation when she has been sober for 6 months. Problem List: 1. Alcohol abuse 2. Alcoholic liver disease 3. Anemia 4. Urinary tract infection 5. Encephalopathy, hepatic 6. Spontaneous bacterial peritonitis Copies To: CORI ADAMS,GIANNI Consult Acknowledgment - Thank you for your consult request.
[2016-02-29 08:35] VITALS: BP 106/60
[2016-02-29 09:08] LABS: ABSOLUTE BASOPHIL COUNT 0 /CUMM (0.0-0.2); ABSOLUTE EOSINOPHIL COUNT 0.2 /CUMM (0.0-0.7); ABSOLUTE GRANULOCYTE CT 5.4 /CUMM (1.4-6.5); ABSOLUTE LYMPH COUNT 1.6 /CUMM (1.2-3.4); ABSOLUTE MONOCYTE COUNT 1.2 /CUMM (0.10-0.60); BASOPHIL % 0.6 % (0.0-2.0); EOSINOPHIL % 2.1 % (0-5); GRANULOCYTE % 63.7 % (42.2-75.2); HEMATOCRIT 28.5 % (37-47); MEAN CORPUSCULAR HGB CONC 33.6 G/DL (33.0-37.0); MEAN CORPUSCULAR VOLUME 98.2 FL (81.0-99.0); MEAN PLATELET VOLUME 7.7 FL (7.4-10.4); PLATELET COUNT 181 /CUMM (130-400); RBC DISTRIBUTION WIDTH 21.1 % (11.5-14.5); WHITE BLOOD CELL COUNT 8.4 /CUMM (4.8-10.8)
--- NOTE | 2016-02-29 09:29 | PN- Housestaff ---
MARY KEE 02/29/16 0929: Subjective Follow-up For: Hepatic encephalopathy alcoholic cirrhosis. Complaints: pt unable to provide hx Subjective: Seen and examined patient, confused not answering questions appropriately. Review of Systems Constitutional: Reports: see HPI. Objective Last 24 Hrs of Vital Signs/I&O Vital Signs Date Time Temp Pulse Resp B/P Pulse O2 O2 Flow FiO2 Ox Delivery Rate 02/28 0835 97.4 110 18 106/60 98 Room Air 02/28 0020 97.3 114 18 100/62 95 Nasal Cannula 02/27 2202 Nasal 2.0L Cannula 02/27 2123 98.4 114 20 110/50 99 Room Air 02/28 2052 98.3 117 20 119/82 99 Room Air 02/27 174 97.4 123 16 131/84 86 Room Air Intake & Output 02/28 1600 02/28 0800 02/28 0000 Intake Total 800 200 Output Total 250 150 Balance 550 50 Intake, IV 800 200 Number 3 Bowel Movements Output, Urine 250 150 Patient 89 lb 15.99 oz Weight Physical Exam General Appearance: Mild Distress, cachetic Skin: dry sunkun HEENT: dry mucous membranes Cardiovascular: Regular Rate, Normal S1, Normal S2 Lungs: Normal Air Movement Extremities: +2 left ankle edema Current Medications: Current Medications Sig/Micaela Start time Last Medication Dose Route Stop Time Status Admin Acetaminophen 325 MG Q8P PRN 02/27 2100 AC PO Ceftriaxone Sodium 1,000 MG 02/28 AC IV Ceftriaxone Sodium 1,000 MG ONCE ONE 02/27 2129 DC 02/28 IV 02/27 2130 0102 Dextrose/Sodium 1,000 ML Q20H 02/27 2345 AC 02/28 Chloride IV 0014 Folic Acid 1 MG DAILY 02/28 1000 AC PO Furosemide 20 MG DAILY 02/28 1000 AC PO Haloperidol 2.5 MG ONCE ONE 02/27 2300 CAN IM 02/27 2301 Lactulose 1 BOT Q6 02/28 1200 AC DE Lactulose 1 BOT Q4 02/28 0200 DC 02/28 DE 0549 Lactulose 1 BOT ONCE ONE 02/27 2030 DC DE 02/27 2030 Lactulose 20 GM ONCE ONE 02/27 1945 CAN PO 02/27 1946 Lidocaine 1 PAT DAILY@0 02/28 2199 AC EXT Lidocaine 0 .STK-MED ONE 02/28 2032 DC .ROUTE Lidocaine 20 ML ONCE ONE 02/27 2029 DC 02/27 ID 02/27 2030 2047 Magnesium Sulfate 1 GM ONCE ONE 02/27 2215 DC 02/28 Dextrose/Water 100 ML IV 02/28 0214 0057 Potassium Chloride 10 MEQ Q1H 02/28 0045 DC 02/28 IV 02/28 0146 0321 Potassium Chloride 10 MEQ Q1H 02/27 2130 DC 02/28 IV 02/27 2231 0120 Sodium Chloride 1,000 ML .Q10H 02/27 2029 DC 02/27 IV 2222 Spironolactone 100 MG DAILY 02/28 1000 AC PO Thiamine HCl 100 MG ONCE ONE 02/28 0100 DC 02/28 Sodium Chloride 100 ML IV 02/28 0159 0200 Last 24 Hrs of Lab/Shaggy Results Last 24 Hrs of Labs/Mics: Laboratory Tests 02/29/16 0802: Anion Gap 14, Estimated GFR > 60, BUN/Creatinine Ratio 18.0, Magnesium 1.9, CBC w Diff NO MAN DIFF REQ, RBC 2.90 L, MCV 98.2, MCH 33.0 H, RDW 21.1 H, MPV 7.7 , Gran % 63.7, Lymphocytes % 19.4 L, Monocytes % 14.2 H, Eosinophils % 2.1, Basophils % 0.6, Absolute Granulocytes 5.4, Absolute Lymphocytes 1.6, Absolute Monocytes 1.2 H, Absolute Eosinophils 0.2, Absolute Basophils 0, PUBS MCHC 33.6 02/28/16 2100: Lymphocytes 47, % Normal PMNs 27, Misc Hematology Test , Fluid WBC 500 H, Fld Total RBCs Counted 353 H 02/28/16 1851: Urine Opiates Screen < 100.00, Methadone Screen < 40, Barbiturate Screen < 60, Ur Phencyclidine Scrn < 6.00, Amphetamines Screen < 100, U Benzodiazepines Scrn < 85, Urine Cocaine Screen < 50, Urine Cannabis Screen < 5.00, Urinalysis LIGHT H, Urine Color YEL, Urine Clarity HAZY H, Urine pH 6.5, Ur Specific [place] 1.025, Urine Protein 100 H, Urine Ketones TRACE H, Urine Nitrite POS H, Urine Bilirubin NEG@ICTO, Urine Urobilinogen 1.0, Ur Leukocyte Esterase LARGE H, Ur Microscopic SEDIMENT EXAMINED, Urine RBC 10-15 H, Urine WBC 25-50 H, Urine Hemoglobin LARGE H, Urine Glucose NEG 02/28/16 1837: Ammonia 78 H 02/28/161836: Anion Gap 19 H, Estimated GFR > 60, BUN/Creatinine Ratio 15.0, Glucose 120 H, Calcium 9.7, Phosphorus 3.4, Magnesium 1.7, Total Bilirubin 6.9 H, Direct Bilirubin 3.1 H, AST 46 H, ALT 27, Alkaline Phosphatase 217 H, Troponin I < 0.01, Total Protein 8.1, Albumin 3.5, Globulin 4.6 H, Albumin/Globulin Ratio 0.8 L, Lipase 16 L, PT 22.7 H, INR 2.18 H, APTT 50 H, CBC w Diff NO MAN DIFF REQ, RBC 3.26 L, MCV 98.8, MCH 33.3 H, RDW 21.8 H, MPV 7.8, Gran % 63.7, Lymphocytes % 19.5 L, Monocytes % 14.1 H, Eosinophils % 2.1, Basophils % 0.6, Absolute Granulocytes 5.7, Absolute Lymphocytes 1.7, Absolute Monocytes 1.3 H, Absolute Eosinophils 0.2, Absolute Basophils 0.1, PUBS MCHC 33.7, Serum Alcohol < 10.0 02/28/16 180: pH 7.54 H, pCO2 24 L, pO2 99, HCO3 20 L, ABG O2 Sat (Measured) 97.0, P-50 ( Temp Corrected) Y, Carboxyhemoglobin 0.3 L, O2 Concentration % 3L, Temperature 97.4, O2 Delivery Method N/C, Phlebotomy Draw Site RIGHT RADIAL Microbiology 02/27 2103 BLOOD: Blood Culture - RECD 02/27 2099 BODY FLUID: Body Fluid Culture - RES 02/27 2100 BODY FLUID: Gram Stain - RES 02/27 1851 URINE ROUT: Urine Culture - RECD 02/27 183 BLOOD: Blood Culture - RECD Assessment/Plan Assessment: 60-year-old woman woman with PMH of cirrhosis diagnosed in Nov 2015, alcohol dependence, , anemia, tachycardia, chronic left lower extremity lymphedema, cervical cancer sp hysterectomy in 1990, obstructive uropathy with left hydronephrosis secondary to stone s/p chronic indwelling layton catheter, recent admission for sepsis of urological origin status post stent placement recurrent falls with right ribs fracture 4 weeks [employer] and 20 pounds weight loss, current admission for worsening confusion. Found to be tachycardic, elevated bilirubin 6.9 transaminitis, elevated ALP ammonia level of 78 with UA positive for ketones and nitrates and leukocyte esterase. Plan Hepatic encephalopathy Continue lactulose, continue rifampicin, pass a swallow eval will place patient on mechanical soft diet with 2 g restriction GI on board appreciate recommendations Diagnostic paracentesis done showed to be transudative Obstructive uropathy/UTI Afebrile no elevated white count Urine culture showing gram-negative rods will continue IV ceftriaxone pending sensitivities Indwelling Lay[place] catheter DNR/DNI DVT prophylaxis mechanical Problem List: 1. Encephalopathy, hepatic 2. Orthostatic hypotension Pain Ratin Pain Location: not applicable Pain Goal: Pain 4 or less Pain Plan: Current regimen Tomorrow's Labs & Rationales: Hepatic encephalopathy :CBC, BEP, hepatic panel JOE LYNN MD 02/29/16 1433: Attending MD Review Statement Attending Statement Attending MD Statement: examined this patient, discuss w/resident/PA/APPROVER, agreed w/resident/PA/APPROVER, reviewed EMR data (avail) Attending Assessment/Plan: 60F PMH alcoholic cirrhosis, obstructive uropathy from nephrolithiasis s/p ureteral stenting with chronic indwelling Lay[place] admitted with hepatic encephalopathy, orthostatic hypotension, decompensated cirrhosis, and a urinary tract infection. On admission patient confused and minimally verbal, appears ill. Paracentesis done 02/27 showed no evidence of SBP at this time, cultures are pending. Mental status has improved since starting lactulose. 1. Decompensated cirrhosis 2. Hepatic encephalopathy 3. UTI 4. Obstructive uropathy 5. Orthostatic hypotension 6. Thrombocytopenia Plan - Continue on general medicine - Follow GI recommendations - Trend LFTs and INR - Continue Ceftriaxone - Follow up blood, urine, and ascites cultures - Discontinue IV fluids - Continue home medications - Consider albumin infusion if hypotensive or hepatorenal - Neuro checks - Continue Lactulose - Passed swallow evaluation, see speech therapy's notes - DVT Ppx with ALPS
[2016-02-29 16:33] VITALS: BP 110/64
[2016-02-29 23:40] VITALS: BP 128/78
--- NOTE | 2016-03-01 07:27 | PN- Housestaff ---
MARY KEE 03/01/16 0727: Subjective Follow-up For: Hepatic encephalopathy decompansated alcoholic cirrhosis. Subjective: Seen and examined patient. Much more awake and alert today and is answering questions. States that she is not eating as much as she has no appetite however states that she will work on that today. Denies being in pain. Denies shortness of breath chest pain abdominal pain. Review of Systems Constitutional: Denies: chills, diaphoresis, fever, malaise, weakness, unexplained weight loss. Cardiovascular: Denies: chest pain, edema, orthopena, palpitations, peripheral edema, syncope. Respiratory: Denies: cough, hemoptysis, orthopnea, short of breath, sputum production, stridor, wheezing. Objective Last 24 Hrs of Vital Signs/I&O Vital Signs Date Time Temp Pulse Resp B/P Pulse O2 O2 Flow FiO2 Ox Delivery Rate 03/01 0836 98.8 86 20 126/80 98 Room Air 02/28 2340 98.4 90 20 128/78 97 Room Air 02/28 1633 98.4 88 20 110/64 98 Room Air Intake & Output 03/01 1600 03/01 0800 03/01 0000 Intake Total 120 Output Total 350 300 Balance -230 -300 Intake, Oral 120 Number 1 1 Bowel Movements Output, Urine 350 300 Physical Exam General Appearance: Alert, Oriented X3, Cooperative Cardiovascular: Regular Rate, Normal S1, Normal S2 Lungs: Clear to Auscultation, Normal Air Movement Abdomen: Normal Bowel Sounds, Soft, No Tenderness Extremities: +2 left ankle edema Current Medications: Current Medications Sig/Micaela Start time Last Medication Dose Route Stop Time Status Admin Acetaminophen 325 MG Q8P PRN 02/27 2100 DC PO Ceftriaxone Sodium 1,000 MG 02/28 AC 02/28 IV 2058 Dextrose/Sodium 1,000 ML Q20H 02/27 2345 DC 02/28 Chloride IV 0014 Folic Acid 1 MG DAILY 02/28 1000 AC 02/28 PO 1231 Furosemide 20 MG DAILY 02/28 1000 AC 02/28 PO 1231 Lactulose 20 GM TID 02/28 1600 AC 02/28 PO 2057 Lactulose 1 BOT Q6 02/28 1200 DC ND Lidocaine 1 PAT DAILY@02/28 2200 AC 02/28 EXT 2057 Rifaximin 550 MG BID 01/12 1600 AC 02/28 PO 2057 Spironolactone 100 MG DAILY 02/28 1000 AC 02/28 PO 1230 Last 24 Hrs of Lab/Shaggy Results Last 24 Hrs of Labs/Mics: Laboratory Tests 03/01/16 0725: Anion Gap 15, Estimated GFR > 60, BUN/Creatinine Ratio 13.3, Total Bilirubin 5.1 H, Direct Bilirubin 2.8 H, AST 55 H, ALT 33, Alkaline Phosphatase 226 H, Total Protein 7.0, Albumin 2.9 L, PT 24.3 H, INR 2.33 H Assessment/Plan Assessment: 60-year-old woman woman with PMH of cirrhosis diagnosed in Nov 2015, alcohol dependence, , anemia, tachycardia, chronic left lower extremity lymphedema, cervical cancer sp hysterectomy in 1990, obstructive uropathy with left hydronephrosis secondary to stone s/p chronic indwelling layton catheter, recent admission for sepsis of urological origin status post stent placement recurrent falls with right ribs fracture 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 Found to be tachycardic, elevated bilirubin 6.9 transaminitis, elevated ALP ammonia level of 78 with UA positive for ketones and nitrates and leukocyte esterase. Diagnostic paracentesis done showed to be transudative. Improved mentation today Plan Hepatic encephalopathy Continue lactulose, continue rifampicin, regular diet with 2 gNa restriction GI on board appreciate recommendations Obstructive uropathy/UTI T bili 5.1 today, direct bili 2.8 mild decreased from yesterday, increase in ALP from 217->226 Urine culture showing gram-negative rods will continue IV ceftriaxone day 2 pending sensitivities Indwelling Layton catheter DNR/DNI DVT prophylaxis mechanical Problem List: 1. Urinary tract infection 2. Encephalopathy, hepatic 3. Alcoholic liver disease Pain Ratin Pain Location: na Pain Goal: Pain 4 or less Pain Plan: current regimen Tomorrow's Labs & Rationales: LFT JOE LYNN MD 03/01/16 1108: Attending MD Review Statement Attending Statement Attending MD Statement: examined this patient, discuss w/resident/PA/APPLICATION DEVELOPER MANAGER, agreed w/resident/PA/APPLICATION DEVELOPER MANAGER, reviewed EMR data (avail) Attending Assessment/Plan: 60F PMH alcoholic cirrhosis, obstructive uropathy from nephrolithiasis s/p ureteral stenting with chronic indwelling Layton admitted with hepatic encephalopathy, orthostatic hypotension, decompensated cirrhosis, and a urinary tract infection. On admission patient confused and minimally verbal, appears ill. Paracentesis done 02/27 showed no evidence of SBP at this time, cultures are pending. Mental status has improved since starting lactulose. Improved mental status today. Answering questions, but still confused. Jaundice and icterus worsening. Afebrile, no evidence of sepsis. Urine culture growing gram negative rods and Enterobacter. 1. Decompensated cirrhosis 2. Hepatic encephalopathy 3. UTI 4. Obstructive uropathy 5. Orthostatic hypotension 6. Thrombocytopenia Plan - Obtain ID consult - Continue on general medicine - Follow GI recommendations - Trend LFTs and INR - Continue Ceftriaxone - Follow up blood, urine, and ascites cultures - Continue home medications - Consider albumin infusion if hypotensive or hepatorenal - Neuro checks - Continue Lactulose and Rifaximin - Passed swallow evaluation, see speech therapy's notes - DVT Ppx with ALPS
[2016-03-01 08:36] VITALS: BP 126/80
[2016-03-01 08:46] LABS: PT 24.3 SEC (9.4-12.5)
[2016-03-01 16:18] VITALS: BP 121/68
--- NOTE | 2016-03-01 16:45 | Cons- Infect Disease ---
General Information and HPI Consulting Request Date of Consult: 03/01/16 Requested By: JOE LYNN MD Reason for Consult: Positive urine culture Source of Information: patient, old records Exam Limitations: unable to give history, confusion History of Present Illness: This is a 60-year-old woman with a history of alcohol-induced cirrhosis, chronic left lower extremity lymphedema, hospitalized 5 weeks prior to admission after a fall resulting in left rib fractures, hospitalized at that time, with a paracentesis negative for SBP, found to have bilateral hydronephrosis and urinary retention, discharged with a Gómez catheter, rehospitalized 3 weeks prior to admission with Escherichia coli sepsis, felt to be of urologic origin, with a repeat paracentesis consistent with SBP and with a CT scan revealing an 8 mm obstructing calculus at the left UPJ resulting in moderate left hydronephrosis, requiring a cystoscopy with placement of left ureteral stent, treated with Ceftriaxone and discharged on Augmentin to complete a two-week course of antibiotics with a Gómez catheter, after failing a voiding trial, and on Lasix, Aldactone and Lactulose, readmitted on February 27 with increased confusion since the night before admission and a history of anorexia, 20 pound weight loss and abdominal discomfort with one episode of vomiting 4 days prior to admission. On admission she was afebrile. Laboratory data revealed a white blood cell count of 9000, BUN/creatinine 9 and 0.6, potassium 3.0, bilirubin 6.9 , alk phosphatase 217, AST/ALT 46 and 27. INR 2.18. ABG 7.54/24/99 on 3 L. Urinalysis 10-15 RBC/25-50 WBCs. Chest x-ray revealed plate like atelectasis at the lower lobes. Doppler of the left leg was negative. She underwent a paracentesis, which revealed 500 white blood cells, with 27% polys. She was begun on Ceftriaxone and Lactulose, with Rifaximin added on February 28. She was also restarted on Lasix and Aldactone on February 28. She has remained afebrile since admission and white blood cell count has remained normal. Her mental status has apparently improved, though she is unable to provide any reliable history. She does deny any pain at this time. Allergies/Medications Allergies: Coded Allergies: NO KNOWN ALLERGIES (02/04/16) Home Med List: Calcium Carbonate/Vitamin D3 (Caltrate 600 + D Tablet) 600 MG-800 TABLET 1 TAB PO BID SUPPLEMENT (Reported) Ferrous Sulfate 325 MG (65 MG IRON) TABLET 1 TAB PO DAILY anemia Folic Acid 1 MG TABLET 1 TAB PO DAILY SUPPLEMENT (Reported) Furosemide 20 MG TABLET 1 TAB PO DAILY Water pill Lactulose 20 GRAM/30 ML SOLUTION 20 GM PO BID cirrhosis Lidocaine (Lidoderm) 5 % ADH..PATCH 1 PAT EXT DAILY@2200 rib pain Magnesium Oxide 400 MG TABLET 400 MG PO BID low magnesium Omeprazole 20 MG CAPSULE.DR 1 CAP PO DAILY GI (Reported) Spironolactone (Aldactone) 25 MG TABLET 100 MG PO DAILY Cirrhosis Thiamine HCl (Vitamin B-1) 100 MG TABLET 1 TAB PO DAILY SUPPLEMENT (Reported) Vitamin E (Dl,Tocopheryl Acet) (Vitamin E) 400 UNIT CAPSULE 1 CAP PO BID SUPPLEMENT (Reported) Past History Travel History Traveled to [place] past 21 day No Medical History Neurological: peripheral neuropathy Cardiovascular: TACHYCARDIA Respiratory: NONE Gastrointestinal: alcoholic hepatitis, hemorrhoids Hepatic: cirrhosis, FATTY LIVER Renal: nephrolithiasis, right-sided hydronephrosis chronic indwelling catheter 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, SKIN CANCER DIETITIAN RESEARCH/Reproductive: NONE Other Medical Hx: left leg lymphedema History of MRSA: No History of VRE: No History of CDIFF: No Isolation History: Standard Influenza Vaccine: 10/18/14 Surgical History Surgical History: hysterectomy, basal cell carcinoma left oophrectomy cervical cancer in the early 90s Family History Relations & Conditions If Any: FATHER, , Age 40-50; Cause: Colon cancer. FH: colon cancer SISTER, ; Cause: Pancreatic cancer. FH: pancreatic cancer MOTHER FH: Alzheimers disease Relation not specified for: colon cancer Psychosocial History Where Do You Live? Home Who Do You Live With? spouse Services at Home: Physical Therapy Primary Language: Latvian Smoking Status: Former Smoker ETOH Use: denies use Illicit Drug Use: denies illicit drug use Living Will? yes Functional Ability ADLs Independent: dressing, eating, toileting, bathing. Ambulation: independent IADLs Independent: shopping, housework, finances, food prep, telephone, transportation , medication admin. Review of Systems Review of Systems EENTM: Reports: visual changes (left eye). Cardiovascular: Reports: chest pain (left chest status post rib fxs). All Other Systems: Reviewed and Negative Exam & Diagnostic Data Last 24 Hrs of Vital Signs/I&O Vital Signs Date Time Temp Pulse Resp B/P Pulse O2 O2 Flow FiO2 Ox Delivery Rate 03/01 1618 97.9 118 22 121/68 97 Room Air 03/01 0836 98.8 86 20 126/80 98 Room Air 02/28 2340 98.4 90 20 128/78 97 Room Air Intake & Output 03/01 1600 03/01 0800 03/01 0000 Intake Total 120 Output Total 200 350 300 Balance -200 -230 -300 Intake, Oral 120 Number 1 1 Bowel Movements Output, Urine 200 350 300 Patient 89 lb 0.01 oz Weight Physical Exam Other Physical Findings: She is awake and alert, confused and disoriented, but in no acute distress. She is afebrile. Skin reveals a maculopapular rash on her back and trunk. HEENT exam scleral icterus. Neck is supple with no adenopathy. Lungs are clear. Heart regular rhythm with no murmur. Abdomen is mildly distended, nontender with positive bowel sounds. Back no CVA tenderness. Extremities left leg swelling compared to the right. Neuro is without focality. Last 24 Hours of Lab Results: Laboratory Tests 03/01 0725 Chemistry Sodium (137 - 145 mmol/L) 137 Potassium (3.5 - 5.1 mmol/L) 3.7 Chloride (98 - 107 mmol/L) 100 Carbon Dioxide (22 - 30 mmol/L) 22 Anion Gap (5 - 16) 15 BUN (7 - 17 mg/dL) 8 Creatinine (0.5 - 1.0 mg/dL) 0.6 Estimated GFR (>60 ml/min) > 60 BUN/Creatinine Ratio (7 - 25 %) 13.3 Total Bilirubin (0.2 - 1.3 mg/dL) 5.1 H Direct Bilirubin (< 0.4 mg/dL) 2.8 H AST (14 - 36 U/L) 55 H ALT (9 - 52 U/L) 33 Alkaline Phosphatase (<127 U/L) 226 H Total Protein (6.3 - 8.2 g/dL) 7.0 Albumin (3.5 - 5.0 g/dL) 2.9 L Coagulation PT (9.4 - 12.5 SEC) 24.3 H INR (0.90 - 1.19) 2.33 H Last 24 Hours of Shaggy Results: Blood cultures 2 February 27 negative Urine culture February 27 greater than 100,000 colonies of Enterobacter cloacae sensitive to Ciprofloxacin, Bactrim and Gentamicin and a possible second gram- negative aaron Diagnostic Data Recent Imaging Findings: Chest x-ray January 27, personally reviewed, reveals platelike atelectasis of both lower lobes Left leg Doppler February 27 negative Assessment/Plan Assessment/Plan Impression: This is a 60-year-old woman with alcohol-induced cirrhosis hospitalized 3 weeks prior to admission with Escherichia coli sepsis, felt to be of urologic origin, found to have a left hydronephrosis attributed to an obstructing stone at the ureteropelvic junction, requiring cystoscopy and placement of a left ureteral stent, with paracentesis revealing a markedly elevated white blood cell count consistent with spontaneous bacterial peritonitis, treated with a two-week course of antibiotics and discharged with a Gómez catheter, readmitted on February 27 with decreased responsiveness for 1 day, found to have an elevated ammonia level, with no fever or leukocytosis, and with a positive urine culture for gram-negative rods. The significance of this positive urine culture is unclear. It likely represents colonization secondary to the Gómez catheter and, in the absence of any fever or leukocytosis, though, given her cirrhosis, she may not be able to mount a white blood cell count, am not inclined to treat this. I suspect that her encephalopathy was related to her elevated ammonia level, suggesting poor compliance with her Lactulose. Of note she appears to have improved despite the fact that the Enterobacter is resistant to Ceftriaxone , supporting the clinical suspicion that this represents colonization. Her ascitic fluid cell count is not consistent with SBP and she has no other obvious focus of infection. Her rash is of unclear etiology and should be monitored. Of note the CT scan on her previous admission suggested a possible splenic infarct, which may require follow-up. Suggestion: 1. Would consider removing Gómez catheter for another voiding trial 2. Further management of her hepatic encephalopathy per GI 3. Discontinue Ceftriaxone and follow off antibiotics Consult Acknowledgment - Thank you for your consult request.
[2016-03-01 23:43] VITALS: BP 122/74
[2016-03-02 08:27] VITALS: BP 117/70
--- NOTE | 2016-03-02 09:16 | PN- Housestaff ---
RADHA ADAMS,CHAI 03/02/16 0916: Subjective Follow-up For: Hepatic encephalopathy Decompensated alcoholic cirrhosis Complaints: no complaints Subjective: I examined the patient today. She is resting comfortably in her bed, not in any distress. Her appetite according to her, has improved. But on questioning see still had confusion. Vitals have remained pretty much the same stable overnight, no overnight issues. Review of Systems Constitutional: Reports: no symptoms. Cardiovascular: Reports: no symptoms. Respiratory: Reports: no symptoms. Gastrointestinal: Reports: see HPI. Genitourinary: Reports: no symptoms. Neurological/Psychological: Reports: no symptoms. Objective Last 24 Hrs of Vital Signs/I&O Vital Signs Date Time Temp Pulse Resp B/P Pulse O2 O2 Flow FiO2 Ox Delivery Rate 03/02 0827 97.8 122 18 117/70 100 Room Air 03/02 0800 100 Room Air 03/01 2343 98.1 116 20 122/74 99 Intake & Output 03/02 1600 03/02 0800 03/02 0000 Intake Total Output Total 450 Balance -450 Output, Urine 450 Physical Exam General Appearance: Alert, Cooperative, No Acute Distress, disoriented to time, cachectic Cardiovascular: Regular Rate, Normal S1, Normal S2 Lungs: bibasilar crackles heard, but not in acute resp distress Abdomen: Normal Bowel Sounds, Soft, No Tenderness Neurological: grossly intact, other than confusion Extremities: No Clubbing, No Cyanosis, No Edema, Normal Pulses, No Tenderness/ Swelling Vascular: Normal Pulses, Pulses Symmetrical Current Medications: Current Medications Sig/Micaela Start time Last Medication Dose Route Stop Time Status Admin Ceftriaxone Sodium 1,000 MG ONCE ONE 03/02 1630 DC IV 03/02 1631 Ceftriaxone Sodium 1,000 MG 02/28 2200 DC 02/28 IV 205 Folic Acid 1 MG DAILY 02/28 1000 AC 03/02 PO 1026 Furosemide 20 MG DAILY 02/28 1000 AC 03/02 PO 1026 Lactulose 1 BOT Q6 03/02 1800 AC DC Lactulose 20 GM TID 02/28 1600 DC 03/02 PO 1027 Lidocaine 1 PAT DAILY@2200 02/28 2200 AC 03/01 EXT 2058 Octreotide Acetate 25 MCG ONCE ONE 03/02 1630 DC IV 03/02 1631 Ondansetron HCl 4 MG Q6P PRN 03/02 1300 AC 03/02 IV 03/02 2350 1317 Pantoprazole Sodium 40 MG DAILY 03/02 1621 AC IV Patient Medication 1 UNIT ONE NR 03/02 1630 DC Teaching ED 03/02 1700 Rifaximin 550 MG BID 02/28 1600 AC 03/02 PO 1026 Sodium Chloride 1,000 ML BOLUS ONE 03/02 1745 AC IV 03/02 1844 Sodium Chloride 1,000 ML BOLUS ONE 03/02 1615 AC IV 03/02 1814 Sodium Chloride 1,000 ML BOLUS ONE 03/02 1600 AC 03/02 IV 03/02 1759 1559 Spironolactone 100 MG DAILY 02/28 1000 AC 03/02 PO 1026 Trimethobenzamide HCl 200 MG ONCE ONE 03/02 1630 DC IM 03/02 1631 Last 24 Hrs of Lab/Shaggy Results Last 24 Hrs of Labs/Mics: Laboratory Tests 03/02/16 1630: CBC w Diff NO MAN DIFF REQ, RBC 2.49 L, MCV 100.3 H, MCH 33.8 H, RDW 21.6 H, MPV 7.8, Gran % 60.9, Lymphocytes % 19.8 L, Monocytes % 18.2 H, Eosinophils % 0.7, Basophils % 0.4, Absolute Granulocytes 5.6, Absolute Lymphocytes 1.8, Absolute Monocytes 1.7 H, Absolute Eosinophils 0.1, Absolute Basophils 0, PUBS MCHC 33.7 03/02/16 1533: CBC w Diff Cancelled, WBC Cancelled, RBC Cancelled, Hgb Cancelled, Hct Cancelled , MCV Cancelled, MCH Cancelled, RDW Cancelled, Plt Count Cancelled, MPV Cancelled, PUBS MCHC Cancelled 03/02/16 0659: Anion Gap 12, Estimated GFR > 60, BUN/Creatinine Ratio 20.0, Total Bilirubin 4.0 H, Direct Bilirubin 2.5 H, AST 52 H, ALT 39, Alkaline Phosphatase 194 H, Total Protein 6.7, Albumin 2.6 L Microbiology 03/02 170 UPPER RESP: Surveillance Culture - ORD 03/02 1702 GI: Surveillance Culture - ORD Assessment/Plan Assessment: 60-year-old woman woman with PMH of cirrhosis diagnosed in Nov 2015, alcohol dependence, , anemia, tachycardia, chronic left lower extremity lymphedema, cervical cancer sp hysterectomy in 1990, obstructive uropathy with left hydronephrosis secondary to stone s/p chronic indwelling layton catheter, recent admission for sepsis of urological origin status post stent placement recurrent falls 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 Found to be tachycardic, elevated bilirubin 6.9 transaminitis, elevated ALP ammonia level of 78 with UA positive for ketones and nitrates and leukocyte esterase. Diagnostic paracentesis done showed to be transudative. Improved mentation today, but some degree of confusion still present. Plan Hepatic encephalopathy Continue lactulose to titrate to 3 bowel movements per day, continue rifampicin, regular diet with 2 gNa restriction GI on board appreciate recommendations Obstructive uropathy/UTI T bili 5.1 today, direct bili 2.8 mild decreased from yesterday, increase in ALP from 217->226 Urine culture showing gram-negative rods Indwelling Layton catheter Of note, patient is off antibiotic since yesterday evening, according to infectious disease consultation. Anemia Patient's hemoglobin has been dropping serially from February 27 to March 02, from initial 10.9-8.4 today. Needs further following, workup and replacement if necessary. DNR/DNI DVT prophylaxis mechanical Problem List: 1. Encephalopathy, hepatic 2. Alcoholic cirrhosis 3. Malnutrition Pain Ratin Pain Location: - Pain Goal: Remain pain free Pain Plan: When necessary Tomorrow's Labs & Rationales: CBC, BEP, FLT, to monitor her decreasing hemoglobin, renal function as her oral intake is very poor, to assess her hepatic encephalopathy JOE LYNN MD 03/02/16 1556: Attending MD Review Statement Attending Statement Attending MD Statement: examined this patient, discuss w/resident/PA/COUNTRY MANAGER, agreed w/resident/PA/COUNTRY MANAGER, reviewed EMR data (avail) Attending Assessment/Plan: 60F PMH alcoholic cirrhosis, obstructive uropathy from nephrolithiasis s/p ureteral stenting with chronic indwelling Layton admitted with hepatic encephalopathy, orthostatic hypotension, decompensated cirrhosis, and a urinary tract infection. On admission patient confused and minimally verbal, appears ill. Paracentesis done 02/27 showed no evidence of SBP at this time, cultures are pending. Mental status has improved since starting lactulose. Improved mental status today. Answering questions, but still confused. Jaundice and icterus worsening. Afebrile, no evidence of sepsis. Urine culture growing gram negative rods and Enterobacter. 1. Decompensated cirrhosis 2. Hepatic encephalopathy 3. UTI 4. Obstructive uropathy 5. Orthostatic hypotension 6. Thrombocytopenia Plan - Discontinue Layton catheter, voiding trial - Continue on general medicine - Follow GI recommendations - Trend LFTs and INR - Discontinue antibiotics per ID recommendations - Follow up blood, urine, and ascites cultures - Continue home medications - Consider albumin infusion if hypotensive or hepatorenal - Neuro checks - Continue Lactulose and Rifaximin - Passed swallow evaluation, see speech therapy's notes - DVT Ppx with ALPS ADDENDUM: Notified by manager of internal that patient has multiple episodes of coffee ground emesis now with new hypotension. - Transfer to ICU - Start Octreotide drip - Start Protonix drip - Give Ceftriaxone 2g - Check CBC, transfuse Hgb<7 - Start normal saline bolus 1L - Stat GI consult - Will continue to monitor
--- NOTE | 2016-03-02 13:05 | PN- Gastroenterology ---
Assessment/Plan Assessment/Recommendations: Assessment: Ms. Mcintosh is a 60-year-old female with alcoholic cirrhosis with numerous hospitalizations over the past several months for various reasons including ascites, anemia, rectal bleeding, SBP and encephalopathy who presents now with changes in her mental status apparently secondary to a urinary tract infection which she has since been started on IV antibiotics. Her ascitic fluid did show 500 white cells, but only 27% of them were PMNs which does not meet the threshold for SBP. She has had some improvement in her mental status since admission, but she continues to be very confused. Her current MELD is 21 which would be ideal for a liver transplant, but this won't be done now secondary to etoh within the past 6 months and an active infection. Recommendations: 1. Follow-up cultures and tailor antibiotics as indicated. 2. Continue IV ceftriaxone for now. 3. Continue lactulose and titrate to approximately 3 soft bowel movements a day. 4. Continue Xifaxan 550 mg by mouth twice a day. 5. Low sodium diet as tolerated and once her mental status improves. 6. Continue her current dose of diuretics and follow electrolytes and replete as needed. I will continue to follow this patient and make further recommendations based her clinical course and will tentatively plan to refer her for liver transplant evaluation when she has been sober for 6 months. Problem List: 1. Anemia 2. Alcohol abuse 3. Alcoholic liver disease 4. Encephalopathy, hepatic 5. Spontaneous bacterial peritonitis 6. Urinary tract infection Subjective Subjective: Pt is still quite confused, but improved from admission. Denies pain. No high fevers. Is having bowel movements from lactulose, but nothing yet today. Objective Vital Signs and I&Os Vital Signs Date Time Temp Pulse Resp B/P Pulse O2 O2 Flow FiO2 Ox Delivery Rate 03/02 0827 97.8 122 18 117/70 100 Room Air 03/02 0800 100 Room Air 03/01 2343 98.1 116 20 122/74 99 03/01 1618 97.9 118 22 121/68 97 Room Air Intake & Output 03/02 1600 03/02 0400 03/01 1600 03/01 0400 02/28 1600 02/28 0400 Intake Total 120 1580 200 Output Total 450 550 300 450 150 Balance -450 -430 -300 1130 50 Intake, IV 1100 200 Intake, Oral 120 480 Number 1 1 5 Bowel Movements Output, Urine 450 550 300 450 150 Patient 89 lb 0.01 oz 89 lb 15.99 oz Weight Physical Exam General Appearance: comfortable, cachetic Head: atraumatic Ears, Nose, Throat: normal pharynx, normal ENT inspection Respiratory: normal breath sounds, chest non-tender Cardiovascular: regular rate/rhythm Abdomen: normal bowel sounds, soft, non-tender, distention Back: normal inspection Neurologic/Psychiatric: disoriented x 3 Skin: intact, jaundice Current Medications: Current Medications Sig/Micaela Start time Last Medication Dose Route Stop Time Status Admin Ceftriaxone Sodium 1,000 MG 02/28 DC 02/28 IV 2058 Folic Acid 1 MG DAILY 02/28 1000 AC 03/02 PO 1026 Furosemide 20 MG DAILY 02/28 1000 AC 03/02 PO 1026 Lactulose 20 GM TID 02/28 1600 AC 03/02 PO 1027 Lidocaine 1 PAT DAILY@02/28 AC 03/01 EXT 205 Ondansetron HCl 4 MG Q6P PRN 03/02 1300 UNVr IV 03/02 2350 Patient Medication 1 ED .STK-MED ONE 03/01 1350 MA Teaching ED 03/01 1351 Rifaximin 550 MG BID 02/28 1600 AC 03/02 PO 1026 Spironolactone 100 MG DAILY 02/28 1000 AC 03/02 PO 1026 Results Pertinent Lab Results: Laboratory Tests 03/02 03/01 02/28 0659 0725 0802 Chemistry Sodium (137 - 145 mmol/L) 137 137 136 L Potassium (3.5 - 5.1 mmol/L) 3.7 3.7 3.7 Chloride (98 - 107 mmol/L) 101 100 99 Carbon Dioxide (22 - 30 mmol/L) 25 22 23 Anion Gap (5 - 16) 12 15 14 BUN (7 - 17 mg/dL) 10 8 9 Creatinine (0.5 - 1.0 mg/dL) 0.5 0.6 0.5 Estimated GFR (>60 ml/min) > 60 > 60 > 60 BUN/Creatinine Ratio (7 - 25 %) 20.0 13.3 18.0 Magnesium (1.6 - 2.3 mg/dL) 1.9 Total Bilirubin (0.2 - 1.3 mg/dL) 4.0 H 5.1 H Direct Bilirubin (< 0.4 mg/dL) 2.5 H 2.8 H AST (14 - 36 U/L) 52 H 55 H ALT (9 - 52 U/L) 39 33 Alkaline Phosphatase (<127 U/L) 194 H 226 H Total Protein (6.3 - 8.2 g/dL) 6.7 7.0 Albumin (3.5 - 5.0 g/dL) 2.6 L 2.9 L Coagulation PT (9.4 - 12.5 SEC) 24.3 H INR (0.90 - 1.19) 2.33 H Hematology CBC w Diff NO MAN DIFF REQ WBC (4.8 - 10.8 /CUMM) 8.4 RBC (4.20 - 5.40 /CUMM) 2.90 L Hgb (12.0 - 16.0 G/DL) 9.6 L Hct (37 - 47 %) 28.5 L MCV (81.0 - 99.0 FL) 98.2 MCH (27.0 - 31.0 PG) 33.0 H RDW (11.5 - 14.5 %) 21.1 H Plt Count (130 - 400 /CUMM) 181 MPV (7.4 - 10.4 FL) 7.7 Gran % (42.2 - 75.2 %) 63.7 Lymphocytes % (20.5 - 51.1 %) 19.4 L Monocytes % (1.7 - 9.3 %) 14.2 H Eosinophils % (0 - 5 %) 2.1 Basophils % (0.0 - 2.0 %) 0.6 Absolute Granulocytes (1.4 - 6.5 /CUMM) 5.4 Absolute Lymphocytes (1.2 - 3.4 /CUMM) 1.6 Absolute Monocytes (0.10 - 0.60 /CUMM) 1.2 H Absolute Eosinophils (0.0 - 0.7 /CUMM) 0.2 Absolute Basophils (0.0 - 0.2 /CUMM) 0 PUBS MCHC (33.0 - 37.0 G/DL) 33.6 02/27 02/27 02/27 2100 1851 1837 Chemistry Ammonia (9 - 30 umol/L) 78 H Hematology Lymphocytes (%) 47 % Normal PMNs (%) 27 Misc Hematology Test (%) Other Body Source Fluid WBC (0 - 5 /CUMM) 500 H Fld Total RBCs Counted (0 /CUMM) 353 H Toxicology Urine Opiates Screen (>2000 NG/ML) < 100.00 Methadone Screen (>300 NG/ML) < 40 Barbiturate Screen (>200 NG/ML) < 60 Ur Phencyclidine Scrn (>25 NG/ML) < 6.00 Amphetamines Screen (>1000 NG/ML) < 100 U Benzodiazepines Scrn (>200 NG/ML) < 85 Urine Cocaine Screen (>300 NG/ML) < 50 Urine Cannabis Screen (>50 NG/ML) < 5.00 Urines Urinalysis LIGHT H Urine Color (YEL,AMB,STR) YEL Urine Clarity (CLEAR) HAZY H Urine pH (5.0 - 8.0) 6.5 Ur Specific [place] (1.001 - 1.035) 1.025 Urine Protein (NEG,<30 MG/DL) 100 H Urine Ketones (NEG) TRACE H Urine Nitrite (NEG) POS H Urine Bilirubin (NEG) NEG@ICTO Urine Urobilinogen (0.1 - 1.0 EU/dl) 1.0 Ur Leukocyte Esterase (NEG) LARGE H Ur Microscopic SEDIMENT EXAMINED Urine RBC (0 - 5 /HPF) 10-15 H Urine WBC (0 - 2 /HPF) 25-50 H Urine Hemoglobin (NEG) LARGE H Urine Glucose (N MG/DL) NEG 02/27 02/27 1837 1805 Blood Gas pH (7.35 - 7.45 PH) 7.54 H pCO2 (35 - 45 TORR) 24 L pO2 (80 - 100 TORR) 99 HCO3 (21 - 28 MEQ/L) 20 L ABG O2 Sat (Measured) (>96.0 %) 97.0 P-50 (Temp Corrected) Y Carboxyhemoglobin (1.5 - 5.0 %) 0.3 L O2 Concentration % 3L Temperature (97.0 - 100.0 FARH) 97.4 O2 Delivery Method N/C Chemistry Sodium (137 - 145 mmol/L) 138 Potassium (3.5 - 5.1 mmol/L) 3.0 L Chloride (98 - 107 mmol/L) 96 L Carbon Dioxide (22 - 30 mmol/L) 23 Anion Gap (5 - 16) 19 H BUN (7 - 17 mg/dL) 9 Creatinine (0.5 - 1.0 mg/dL) 0.6 Estimated GFR (>60 ml/min) > 60 BUN/Creatinine Ratio (7 - 25 %) 15.0 Glucose (65 - 99 mg/dL) 120 H Calcium (8.4 - 10.2 mg/dL) 9.7 Phosphorus (2.5 - 4.5 mg/dL) 3.4 Magnesium (1.6 - 2.3 mg/dL) 1.7 Total Bilirubin (0.2 - 1.3 mg/dL) 6.9 H Direct Bilirubin (< 0.4 mg/dL) 3.1 H AST (14 - 36 U/L) 46 H ALT (9 - 52 U/L) 27 Alkaline Phosphatase (<127 U/L) 217 H Troponin I (< 0.11 ng/ml) < 0.01 Total Protein (6.3 - 8.2 g/dL) 8.1 Albumin (3.5 - 5.0 g/dL) 3.5 Globulin (1.9 - 4.2 gm/dL) 4.6 H Albumin/Globulin Ratio (1.1 - 2.2 %) 0.8 L Lipase (23 - 300 U/L) 16 L Coagulation PT (9.4 - 12.5 SEC) 22.7 H INR (0.90 - 1.19) 2.18 H APTT (25 - 37 SEC) 50 H Hematology CBC w Diff NO MAN DIFF REQ WBC (4.8 - 10.8 /CUMM) 8.9 RBC (4.20 - 5.40 /CUMM) 3.26 L Hgb (12.0 - 16.0 G/DL) 10.9 L Hct (37 - 47 %) 32.2 L MCV (81.0 - 99.0 FL) 98.8 MCH (27.0 - 31.0 PG) 33.3 H RDW (11.5 - 14.5 %) 21.8 H Plt Count (130 - 400 /CUMM) 218 MPV (7.4 - 10.4 FL) 7.8 Gran % (42.2 - 75.2 %) 63.7 Lymphocytes % (20.5 - 51.1 %) 19.5 L Monocytes % (1.7 - 9.3 %) 14.1 H Eosinophils % (0 - 5 %) 2.1 Basophils % (0.0 - 2.0 %) 0.6 Absolute Granulocytes (1.4 - 6.5 /CUMM) 5.7 Absolute Lymphocytes (1.2 - 3.4 /CUMM) 1.7 Absolute Monocytes (0.10 - 0.60 /CUMM) 1.3 H Absolute Eosinophils (0.0 - 0.7 /CUMM) 0.2 Absolute Basophils (0.0 - 0.2 /CUMM) 0.1 PUBS MCHC (33.0 - 37.0 G/DL) 33.7 Miscellaneous Phlebotomy Draw Site RIGHT RADIAL Toxicology Serum Alcohol (<10 MG/DL) < 10.0 MELD - 21
[2016-03-02 16:00] VITALS: BP 88/62
[2016-03-02 16:58] LABS: ABSOLUTE BASOPHIL COUNT 0 /CUMM (0.0-0.2); ABSOLUTE EOSINOPHIL COUNT 0.1 /CUMM (0.0-0.7); ABSOLUTE LYMPH COUNT 1.8 /CUMM (1.2-3.4); BASOPHIL % 0.4 % (0.0-2.0)
[2016-03-02 17:00] LABS: ABSOLUTE GRANULOCYTE CT 5.6 /CUMM (1.4-6.5); ABSOLUTE MONOCYTE COUNT 1.7 /CUMM (0.10-0.60); EOSINOPHIL % 0.7 % (0-5); GRANULOCYTE % 60.9 % (42.2-75.2); MEAN CORPUSCULAR HGB 33.8 PG (27.0-31.0); MEAN CORPUSCULAR HGB CONC 33.7 G/DL (33.0-37.0); MEAN CORPUSCULAR VOLUME 100.3 FL (81.0-99.0); MEAN PLATELET VOLUME 7.8 FL (7.4-10.4); PLATELET COUNT 171 /CUMM (130-400); RBC DISTRIBUTION WIDTH 21.6 % (11.5-14.5); RED BLOOD CELL CT 2.49 /CUMM (4.20-5.40); WHITE BLOOD CELL COUNT 9.2 /CUMM (4.8-10.8)
--- NOTE | 2016-03-02 17:05 | Event Note ---
Event Note Event Note: Notified by nursing staff around 3:30PM about the patient's hematemesis. Patient was seen and examined. She threw up coffee ground vomitus, 6-7 episodes amounting to about 200cc. Hemeoccult of vomitus positive. Vitals: Temp 96, BP 78 /60, HR 132, 96% on RA. Patient noted to be more lethargic, repeatedly falling asleep. Stat CBC, 1L IVF bolus, type and screen, IV protonix, IV octreotide, IV CTX, IV antiemetics, AL Lactulose, KUB ordered. Conset for blood transfusion obtained from the Srinivas Mcintosh. Dr. Raymundo (GI) and Dr. Knight ( attending) notified about the situation and management. Patient's BP slightly improved to 80s after 300cc of IVF. However per Dr. Knight's request, patient was transferred to ICU for close monitoring of hemodynamic stability especially in anticipation for possible esophageal varices.
[2016-03-02 17:15] VITALS: BP 70/50
--- NOTE | 2016-03-02 18:25 | RADIOLOGY REPORT ---
EXAMINATION: XR ABDOMEN CLINICAL INDICATION: Hematemesis. COMPARISON: Abdomen CT from 02/04/2016 TECHNIQUE: Abdomen radiograph, AP view FINDINGS: Bowel gas pattern is normal on this limited, single view exam. A double-J left ureteral stent is in satisfactory position. A 0.4 cm calculus is seen at the level of the renal pelvis and a 0.5 x 0.6 cm calculus is at the level of the ureterovesical junction. There are no stones along the surface of the mid or distal stent. No bladder calculi. Multiple surgical clips within the pelvis. IMPRESSION: 1. No evidence of bowel obstruction. 2. Left ureteral stent is in satisfactory position. Calculi are present within the renal pelvis and at the ureteropelvic junction.
--- NOTE | 2016-03-02 19:04 | Event Note ---
Event Note Event Note: Case was discussed with Dr. Raymundo of Gastroenterology. Should treatment be pursued it was recommended that patient should be given a protonix bolus and started on a drip, laculose enema, zofran for nausea, garay cultured and started on antibiotics to cover for SBP. These options were discussed with her in addition to goals of care. He did not want to pursue treatment for her clinical condition and wanted her to be comfortable. He was reassured that her clinical condition may posisbly improve with the care regimen. He stated that he discussed care with his many times over the years and at this point in time he would like to not pursue treatment as per his wifes previously stated wishes in addition to his own wishes not to see her suffer. Paperwork regarding her legal power of real estate attorney was located. The case was discussed with the attending of record Dr. Knight whom agreed to make the patient comfort care should the request to do do. Goals of care were further discussed with the Patients . Dr. Esteban Rosa was witness to this conversation. It was further emphasized that patients clinical condition may posisbly stablize with previously received care and could potentially further improve with ongoing care. He reinterated his wishes to only keep her comfortable and verbally declined utilization of any central lines, intravenous fluids, pressors or invasive treatments. He verbally stated when asked if he wants to convert her code status from do not resuscitate/do not intubate to comfort measures only, for which he agreed, this was witnessed by Dr. Rosa and the producer whom was at bedside. Daily medications were discontinued, antiemetics were ordered, protonix was continued as it may possibly help with the nausea&vomiting. Code status was changed to comfort measures and a transfer order was placed to return patient to the general medicine floor.
[2016-03-03 00:56] VITALS: BP 70/30
--- NOTE | 2016-03-03 02:54 | Event Note ---
Event Note Event Note: Situation: Nurse and family member alerted me that the patient had stopped breathing. Brief Assesment: * Pt was unresponsive to verbal and phjysical stimuli including sternal rub. * Physical exam was remarkable for fixed, dilated and unresponsive pupils to light stimuli. Carotid and peripheral pulses were absent. No Heart sounds were appreciated during aucultation, breath sounds were also absent on lung salas auscultation. * Pt code status was "comfort measures". Assesment and Plan * Pt was declared at 2:50am * Attending was notified * Pt family was at bedside,refused autopsy. * was reported to admission dept.
--- NOTE | 2016-03-22 13:45 | Discharge Summary ---
Visit Information Visit Dates Admission Date: 02/28/16 Discharge Date: 03/03/16 Hospital Course Course Attending Physician: JOE LYNN MD Primary Care Physician: CORI ADAMS,[facility] Course: 60-year-old woman woman with PMH of cirrhosis diagnosed in Nov 2015, alcohol dependence, , anemia, tachycardia, chronic left lower extremity lymphedema, cervical cancer sp hysterectomy in 1990, obstructive uropathy with left hydronephrosis secondary to stone s/p chronic indwelling layton catheter, recent admission for sepsis of urological origin status post stent placement recurrent falls with right ribs fracture 4 weeks [employer] and 20 pounds weight loss was admitted to [facility] for worsening confusion as noted by her . Vitals on admission: Afebrile, pulse 114, RR, BP, O2 saturation within acceptable range. Labs: Hemoglobin 10.9, potassium 3.0, anion gap 19, bilirubin 6.9 which is increased from 5.1 from previous hospitalization, INR 2.1, AST 46, ALT 27, alkaline phosphatase 217, ammonia 78, albumin 3.5, troponin less than 0.01, lipase 16, UA positive for ketones as well as nitrates and leukocyte esterase, U tox negative. Chest x-ray: Ascites resulting in the high position of both hemidiaphragms and platelike atelectasis of the lower lobes. Left lower extremity DVT Doppler: No evidence of thrombus. She was admitted to the general medicine intially and was managed for hepatic encephalopathy with lactulose and rifampicin. GI was on board. Urine culture showed gram-negative rods and she was started on IV ceftriaxone. Infectious disease was consulted and decision to follow of antibiotics was made. On Day four of admission patient started to have coffee ground emitus, Stat CBC, 1L IVF bolus, type and screen, IV protonix, IV octreotide, IV CTX, IV antiemetics, SD Lactulose, KUB was ordered and she was transferred to ICU. Goals of care was addressed with her . He wished to keep her comfortable and declined utilization of any central lines, intravenous fluids, pressors or invasive treatments. Patient was made comfort care. On Mar 03 at 2:50 am patient . Complications: Allergies: Coded Allergies: NO KNOWN ALLERGIES (02/04/16) Disposition Summary Disposition Principal Diagnosis: Hepatic encephalopathy Additional Diagnosis: Upper GI Bleed Decompansated alcoholic cirrhosis Obstructive uropathy secondary to nephrolithiasis s/p ureteral stenting with chronic indwelling Lay[place] Discharge Disposition: Discharge Instructions General Discharge Information Code Status: Comfort Care Only Patient's Diet: none Patient's Activity: none Follow-Up Instructions/Appts: none Copies To: CORI ADAMS,GIANNI Attending MD Review Statement Documenting Attending: JOE LYNN MD
== END 2016-03-03 05:00 | disposition expired | DRG 441 ==
LOC: ENRESERVDT → ENRESERVTM → ERH 17:31 → ERHI 19:53 → 2NB 19:53 → CRI 03-02 17:15
PROVIDERS: Emergency Medicine; Internal Medicine Hematology & Oncology; Radiology Diagnostic Radiology; ADMIT Internal Medicine
PROC: 0W9G3ZX Drainage of Peritoneal Cavity, Percutaneous Approach, Diagnostic (ICD-10-PCS; principal; 2016-02-28)
DX: K72.90 Hepatic failure, unspecified without coma (principal); K65.2 Spontaneous bacterial peritonitis; E87.3 Alkalosis; E87.2 Acidosis; E46 Unspecified protein-calorie malnutrition; N39.0 Urinary tract infection, site not specified; E87.6 Hypokalemia; E83.42 Hypomagnesemia; K70.31 Alcoholic cirrhosis of liver with ascites; Z51.5 Encounter for palliative care
CPT/HCPCS: 2NSBP; 87075; CCU; 36415; 74000; 80307; 81001; 82436; 87040; 87086; 88305; 93005; 93010; 97162-GP; 97530-GO; G0480; J0696; J1630; J2354; J2405; J2765; J3250; J3490; J7042